=== PATIENT | female | born 1955 | race Caucasian/White ===

== ENCOUNTER → 2024-02-21 10:40 | Outpatient (REF) | payer OTHER, SELFPAY | LOC: DHCBC/DCA 10:40 | PROVIDERS: ATTENDING PHYSICIAN Nurse Practitioner; FAMILY PHYSICIAN Family Medicine | DX: R07.89 Other chest pain (principal); I25.810 Atherosclerosis of coronary artery bypass graft(s) without angina pectoris; R00.2 Palpitations; I48.4 Atypical atrial flutter | CPT/HCPCS: 78452; 93017; A9500; J2785 ==

== ENCOUNTER → 2024-04-03 13:44 | Outpatient (REF) | payer OTHER, SELFPAY | LOC: HWRCS 13:44 | PROVIDERS: ATTENDING PHYSICIAN Internal Medicine Cardiovascular Disease; FAMILY PHYSICIAN Family Medicine | DX: R53.83 Other fatigue (principal); R06.02 Shortness of breath; R00.2 Palpitations | CPT/HCPCS: 93306 ==

== ENCOUNTER → 2024-04-06 12:12 | Outpatient (REF) | payer OTHER, SELFPAY | LOC: RAD 12:12 | PROVIDERS: ATTENDING PHYSICIAN Internal Medicine Cardiovascular Disease; FAMILY PHYSICIAN Family Medicine | DX: R06.02 Shortness of breath (principal); Z87.891 Personal history of nicotine dependence | CPT/HCPCS: 71046 ==

== ENCOUNTER → 2024-04-13 11:47 | Day surgery (SDC) | payer OTHER, SELFPAY ==
[2024-04-13] VITALS (8 sets, daily range): BP systolic 109–139; BP diastolic 46–118
--- NOTE | 2024-04-13 14:50 | ITS.CL.CATH ---
Investment Banking Manager - Catheterization
Cardiac Catheterization
Procedure Report:
CARDIAC CATHETERIZATION REPORT
Date of Procedure: 04/13/2024
Referring: Steve Rios MD
Indication: Abnormal stress test with exertional dyspnea and known CAD
�
HEMODYNAMIC DATA
AO: 157/48
LV: 157/12
�
LEFT VENTRICULOGRAPHY: Severe inferobasal and mid inferior hypokinesis with EF 54%
�
CORONARY ANGIOGRAPHY
Dominance: Left
Left Main: Widely patent left main coronary artery stent extending into the circumflex with no restenosis.
LAD: 40% LAD stenosis spanning the takeoff of the large first diagonal branch. The LAD is occluded distal to the takeoff of the third septal x ray equipment mechanic. A widely patent QUINTEROS graft that supplies the distal LAD which has mild luminal disease. The
appearance of the LAD is similar to the prior studies from 2022 and 2013.
Circumflex: The circumflex is dominant. The left main coronary artery stent extending into the circumflex remains widely patent. A large ramus intermedius branch fills via the LARRY graft. There is smooth 40% stenosis just distal to this stented
segment. There is a long stented segment in the mid to distal circumflex which is widely patent. The distal circumflex has 50% stenosis past the takeoff of the bifurcating first left posterolateral branch and there are 60% and 70% lesions proximal
to the takeoff of the medium sized terminal left PDA. On review of the prior studies from 2022 the lesion severity appears similar
RCA: Nondominant vessel occluded at its origin. There is a proximal RV branch which collateralizes the more distal RV branches of the nondominant RCA
Bypass grafts:
1. The left internal mammary graft to the LAD remains widely patent with excellent runoff
2. The right internal mammary graft to the large ramus intermedius is widely patent with excellent runoff
�
Closure Device: None-angiography shows a small caliber right femoral artery and I felt the diameter of the vessel a bit small for safe placement of a closure device
Radiation (mGy): 107
DAP (cm2.Gy): 9.5
Fluoroscopy time: 5.3 minutes
�
CONCLUSIONS
1:�Systemic hypertension
2:�Severe inferobasal and mid inferior hypokinesis with EF 54%-the left ventriculogram is unchanged in appearance compared with the prior LVG from 12/2022
3. [place] CAD and graft anatomy as described above and essentially unchanged compared with the prior study from 2022 following circumflex stenting at that time
4. Recommend continued medical therapy for CAD
�
�
Copy to: Steve Rios MD, Frank Delgado MD
�
Cordell Paul MD, FORMERLY [facility], [facility]
== END | disposition home or self-care (01) ==
LOC: CATH 11:47
PROVIDERS: ATTENDING PHYSICIAN Internal Medicine Cardiovascular Disease; FAMILY PHYSICIAN Family Medicine; OTHER PHYSICIAN Internal Medicine Cardiovascular Disease
DX: I25.10 Atherosclerotic heart disease of native coronary artery without angina pectoris (principal); R06.09 Other forms of dyspnea; R94.39 Abnormal result of other cardiovascular function study; I10 Essential (primary) hypertension; Z95.5 Presence of coronary angioplasty implant and graft
CPT/HCPCS: 93459; C1894; Q9967

== ENCOUNTER → 2024-05-14 12:57 | Outpatient (REF) | payer OTHER, SELFPAY | LOC: HWRAD 12:57 | PROVIDERS: ATTENDING PHYSICIAN Internal Medicine Cardiovascular Disease; FAMILY PHYSICIAN Family Medicine | DX: I65.23 Occlusion and stenosis of bilateral carotid arteries (principal) | CPT/HCPCS: 93880 ==

== ENCOUNTER → 2024-05-28 12:38 | Outpatient (REF) | payer OTHER, SELFPAY | LOC: RAD 12:38 | PROVIDERS: ATTENDING PHYSICIAN Surgery Vascular Surgery; FAMILY PHYSICIAN Family Medicine | DX: I73.9 Peripheral vascular disease, unspecified (principal) | CPT/HCPCS: 75635; Q9967 ==

== ENCOUNTER → 2024-08-16 15:13 | Outpatient (REF) | payer OTHER, SELFPAY | LOC: RCS 15:13 | PROVIDERS: ATTENDING PHYSICIAN Internal Medicine Cardiovascular Disease; FAMILY PHYSICIAN Family Medicine | DX: I25.10 Atherosclerotic heart disease of native coronary artery without angina pectoris (principal); R00.1 Bradycardia, unspecified; I73.9 Peripheral vascular disease, unspecified; R00.2 Palpitations; I48.4 Atypical atrial flutter | CPT/HCPCS: 93225; 93226 ==

== ENCOUNTER 2024-08-30 08:21 | Day surgery (SDC) | payer OTHER, SELFPAY ==
[2024-08-30] VITALS (17 sets, daily range): BP systolic 94–179; BP diastolic 47–93; BMI 19.8
--- NOTE | 2024-08-30 12:49 | ITS.EPS ---
Hat Blocker - EPS Report
EPS
Procedure Report:
Electrophysiology study:
Ms. Jacobs is a very pleasant 69 yr old woman with h/o palpitations, and dyspnea of exertion, with h/o CAD s/p IA and CABG h/o IA and Severe inferobasal and mid inferior hypokinesis with EF 54% s/p left heart cath pn 04/13/24 that showed inferobasal
scar on LV gram and severe [place] CAD and patent grafts (the left internal mammary graft to the LAD remains widely patent with excellent runoff. The right internal mammary graft to the large ramus intermedius is widely patent with excellent runoff).
She had non-sustained VT and frequent PVCs. The Holter on 08/16/24 showed 2 of the runs were episodes of ventricular tachycardia, the longest ventricular run was 11 beats in length with a rate of 106 bpm and the fastest ventricular run had a rate of
176 bpm and was 9 beats in length. She also had frequent PVC in isolation and bigeminy patterns. With her non-sustained arrhythmia, she was advised for EP evaluation and arrhythmia induction for electrophysiology (EP) study and if ventricular
arrhythmia is inducible then possible ICD placement.
Date of the Procedure:
08/30/2024
Indications: Ventricular Tachycardia
Pre-Operative Diagnosis: History of ventricular tachycardia and dyspnea on exertion
Post-Operative Diagnosis: Ventricular tachycardia
Procedure Performed: EP study with arrhythmia induction
Performing physician:
Yue Velez MD
Anesthesia:
See anesthesia records
Detailed Description of the Procedure:
Written informed consent was obtained from the patient after a full explanation of the risks and benefits of the procedure including the risks of sedation and anesthesia.
The patient was brought to the electrophysiology laboratory in stable condition in fasting state. Continuous electrocardiographic and hemodynamic monitoring was initiated. The initial rhythm was normal sinus rhythm.
The procedure site was meticulously prepared with surgical scrub and allowed to dry with no pooling. Sterile draping was applied to cover the procedure site. The image intensifier was draped with sterile bag and positioned over the patient.
After infusion of local anesthetic, vascular access was obtained under ultrasound guidance and sheaths were placed over guide wire as detailed below.
Sheaths:
��������� 6Fr sheath in right femoral vein
��������� 6Fr sheath in right femoral vein
Catheters:
��������� 6Fr - Saritha Quad-cath at RVa and HIS
��������� 6Fr - Saritha Quad-cath at HRA
Baseline intervals (milliseconds):
PP / RR interval (baseline cycle length): 870
P wave duration: 132
UT interval: 180
QRS duration: 94
QT interval: 468
AH interval: 86
His duration: 12
HV interval: 54
Q onset to RVa: 0
Sinus Node Function:
The sinus node functions are within acceptable normal range.
Atrioventricular Ruchi Function:
Atrial stimulation with incremental pacing intervals was performed from the high right atrium (HRA) and right ventricular apex (RVa) and antegrade and retrograde atrioventricular (AV) block cycle lengths were determined. The antegrade AV Wenckebach
was noted at 320 msec.
Programmed atrial stimulation was performed with drive train of 600 msec followed by a single atrial extra-stimulus and the AV ruchi and the atrial ERPs were determined. The AV ruchi ERP was 600/230 msec and the atrial ERP was <600/230 msec.
There was normal decremental conduction noted through the AV node. The programmed stimuli showed no evidence of dual pathways or echo beats.
Ventricular stimulation showed concentric, midline and decremental retrograde conduction through the AV node and retrograde AV ruchi Wenckebach was 320 msec and the retrograde AV ruchi ERP was 600/230 msec with drive train of 600 msec.
The AV ruchi functions are deemed within normal range and no sign of dual pathway noted.
Ventricular Function:
Single ventricular extrastimuli were delivered following drive train of 600 msec, the ventricular ERP was determined <200 msec. The ventricular electrical functions are within acceptable range.
Arrhythmia Induction:
Programmed stimulation including single, double and triple extrastimuli were delivered from the RVa. There was easily inducible non-sustained ventricular tachycardia with single and double extrastimuli.
The VT was induced at 400/240/240/230 and it was fast and sustained. The tachycardia was sustained at cycle length of 240 msec.
The tachycardia terminated to sinus just when cardioversion was about to shock.
The EP study was positive for ventricular tachycardia induced with programmed stimulation.
Procedure End
Following the completion of the EP study, catheters were removed. The sheaths were removed and hemostasis achieved with manual compression.
Estimated Blood loss:
<5 cc
Specimens Removed:
None.
Implants / Devices:
None
Urine output:
None
Packs / Drains/ Tubes:
None
Instrument / Sponge Count Correct:
Yes
Complications of the Procedure:
None
Condition of Patient at Time of Transfer:
Hemodynamically stable with no neurological or vascular compromise.
Summary:
A positive electrophysiology study with induction of Ventricular tachycardia using MUSTT protocol.
ICD placement is recommended.
--- NOTE | 2024-08-30 14:27 | CM ---
Chart reviewed. Patient is independent of ADLS, lives in a 1 STH, 2 NICOLE, 0 DME. Plan is for the patient to return home. CM to follow
--- NOTE | 2024-08-30 19:14 | PTCARENOTE ---
Pt received post EPS done via right femoral vein. Figure of eight suture removed without problem, no sign of bleeding or hematoma. Pt OOB with assist of one, slightly unsteady and at risk to fall, pt calling for assistance, fall precautions in
place. Pt voiding without difficulty. Telemetry showed sinus rhythm while pt was on bedrest and then frequent PVC's noted with occasional atrial fib. Pt shown ICD and procedure and activity restrictions explained. Plan for ICD placement on 08/31.
[2024-08-30] MEDS: LOPRESSOR 50 MG PO (20:23)
[2024-08-30] MEDS: TYLENOL 650 MG PO (20:38)
--- NOTE | 2024-08-30 21:39 | PTCARENOTE ---
Patient received at change of shift resting in the bed. Right groin site with gauze and tegaderm C/D/I, bilateral pedal pulse palpable. Sinus rhythm with PACs and PVCs on telemetry. Oxygen saturation on room air 95-99%. Patient's only complaint is a
mild headache, PRN acetaminophen given, see MAR. Plan of care discussed with patient. Call martel within reach.
[2024-08-30] MEDS: MELATONIN 5 MG PO (23:07)
[2024-08-31] VITALS (10 sets, daily range): BP systolic 124–150; BP diastolic 44–132
[2024-08-31 04:31] LABS: Hematocrit 29.2 % (37.0-47.0); Hemoglobin 9.8 g/dL (12.0-16.0); Mean Corp Hgb Conc. 33.6 g/dL (33.0-37.0); Mean Corpuscular Hgb 30.2 pg (27.0-31.0); Mean Corpuscular Volume 90.1 fL (81.0-99.0); Mean Platelet Volume 9.2 fL (7.4-10.4); Platelet Count 254 10^3/uL (130-400); Red Blood Cell Count 3.24 10^6/uL (4.20-5.40); Red Cell Dist. Width 13.6 % (11.5-14.5)
[2024-08-31 04:59] LABS: Blood Urea Nitrogen 16 mg/dl (7-17); Calcium 9.5 mg/dl (8.4-10.2); Carbon Dioxide 32 mmol/L (22-30); Chloride 97 mmol/L (98-107); Estimated Creatinine Clearance 50 ml/min; Glucose 92 mg/dl (70-99); Magnesium 2.3 mg/dl (1.6-2.3); Potassium 3.7 mmol/L (3.5-5.1); Sodium 135 mmol/L (135-145); eGFR > 60.00
--- NOTE | 2024-08-31 07:29 | W.PN.CD ---
Today's Communication / Plan
-
-Plan for ICD placement today.
-With severe bradycardia and need for uptitration of beta-blockers, will also need atrial lead.
Impression / Plan
-
Ms. Jacobs is a very pleasant 69 yr old woman with h/o palpitations, and dyspnea of exertion, with h/o CAD s/p ME and CABG h/o ME and Severe inferobasal and mid inferior hypokinesis with EF 54% s/p left heart cath on 04/13/24 that showed inferobasal
scar on LV gram and severe [place] CAD and patent grafts (the left internal mammary graft to the LAD remains widely patent with excellent runoff. The right internal mammary graft to the large ramus intermedius is widely patent with excellent runoff).
She had non-sustained VT and frequent PVCs. The Holter on 08/16/24 showed 2 of the runs were episodes of ventricular tachycardia, the longest ventricular run was 11 beats in length with a rate of 106 bpm and the fastest ventricular run had a rate of
176 bpm and was 9 beats in length. She also had frequent PVC in isolation and bigeminy patterns s/p EPS on 08/30/24 that was positive for easily inducible sustained ventricular tachycardia leading to loss of consciousness on the table.
Primary Terminal Operations Supervisor: Dr. Rios
Ventricular arrhythmia
- Easily inducible VT - sustained
- VT was sustained leading to loss of consciousness on the table with hemodynamic compromise.
- Increase Metoprolol to 100 mg BID after ICD
- Hold Amlodipine / HCTZ to uptitrate Metoprolol
- Bradycardia overnight. Heart rate in 40s at lower BB dose
- Will need atrial pacing as well to allow for higher Toprol dose
CAD
- s/p CABG - On Plavix, Eliquis, Crestor, Amlodipine and Metoprolol.
- [facility] 04/13/2024 - patents grafts and [place] disease
- Inferior scar - basal to mid infero septal.
- Recovered LVEF - now 55%
- ECHO 04/03/24- LVEF 55-60%
PAD:
-Bilateral carotid artery disease
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
-Severe ostial right renal artery stenosis
-Patent right external iliac and distal left external iliac stents
-On Eliquis, Plavix and Crestor
-Followed by Dr. De Souza
HTN:
-On amlodipine, HCTZ and metoprolol
-Needs uptitration of metoprolol. Will discontinue hydrochlorothiazide
-Hold amlodipine and if adequate blood pressure can be resumed especially with the presence of coronary bypass graft
History of SVT/atrial fibrillation
-History of wendi atrial tachycardia status post ablation on 10/17/2022
-Had history of atrial flutter but was not seen during the ablation and not ablated.
-[id number] score is 4-age, gender, CAD/PAD, HTN
Physical Exam
Vital Signs/Labs
Vital Signs
Temp Pulse Resp BP Pulse Ox
98.4 F 47 14 124/49 98
08/31/24 03:42 08/31/24 06:00 08/31/24 03:42 08/31/24 03:45 08/31/24 03:42
08/30/24 08/31/24 09/01/24
06:59 06:59 06:59
Actual Weight 53.97 kg
08/31/24 03:55
08/31/24 03:55
Magnesium 2.3 mg/dl (1.6-2.3) 08/31/24 03:55
Physical Exam
Constitutional: No acute distress and Comfortable
EENT: Anicteric and Moist mucous membranes
Cardiovascular: Rhythm & rate is regular, Pedal edema is absent, JVD pressure is normal and Systolic murmur absent
Respiratory: Respiratory effort normal, Lungs clear to auscul. and Crackles Absent
GI: Soft, Non tender and Normal bowel sounds
Neuro/Psych: Alert, Oriented and AO x 3
Other: Cath Site
Data Reviewed
-
Date of Service: August 31, 2024
Medical Decision Making: Reviewed Test Results, Test Interpretation and Review of Case with other Provider
EKG: Tracing Personally Visualized and interpreted
Echo: Report Reviewed by me
Labs: Labs Reviewed by me
Old Records: Reviewed
--- NOTE | 2024-08-31 08:41 | W.ICD.CONTRA ---
Post ICD/LEGAL RECRUITER-D
-
History of UT?: Yes
LV Function
Left ventricular function study result?: Ejection Fraction >/= 40%
ACEI/ARB/ARNI
Patient already on ACEI/ARB/ARNI: No (recently stopped lisinopril 10mg/d- no documentation noted in [employer])
ACEI/ARB/ARNI Not Indicated: Left Ventricular EF >/= 40%
Beta-Tyrell
Patient already on Beta Tyrell: Yes
[2024-08-31] MEDS: CRESTOR 5 MG PO (09:30)
[2024-08-31] MEDS: PLAVIX 75 MG PO (09:30)
[2024-08-31] MEDS: NORVASC 2.5 MG PO (09:30)
[2024-08-31] MEDS: SYNTHROID 100 MCG PO (09:31)
[2024-08-31] MEDS: LOPRESSOR 50 MG PO ×2 (09:31→21:14)
--- NOTE | 2024-08-31 10:41 | CM ---
Chart reviewed. Patient is independent of ADLS, lives with her partner in a 1 STH, 2 NICOLE, 0 DME. Plan is for the patient to return home. CM to follow
[2024-08-31] MEDS: VANCOCIN 200 IV (12:20)
--- NOTE | 2024-08-31 12:24 | PTCARENOTE ---
pt is sb on the monitor, hr in the 50s, vss. pt offers no complaints at this time. pt kept npo for procedure. report called to lab. iv abx started. pt educated on plan of care and pt verbalized understanding. call martel within reach.
[2024-08-31] MEDS: STERILE WATER FOR INJECTION 10 ML IV (13:26)
[2024-08-31] MEDS: AZACTAM 2000 MG IV (13:45)
--- NOTE | 2024-08-31 14:58 | ITS.CL.ICD ---
Sandblaster Supervisor - ICD
Implantable Cardioverter Defibrillator
Procedure Report:
Dual Chamber Implantable Cardioverter Defibrillator Placement:
Ms. Jacobs is a very pleasant 69 yr old woman with h/o palpitations, and dyspnea of exertion, with h/o CAD s/p PA and CABG h/o PA and Severe inferobasal and mid inferior hypokinesis with EF 54% s/p left heart cath on 04/13/24 that showed inferobasal
scar on LV gram and severe [place] CAD and patent grafts (the left internal mammary graft to the LAD remains widely patent with excellent runoff. The right internal mammary graft to the large ramus intermedius is widely patent with excellent runoff).
She had non-sustained VT and frequent PVCs. The Holter on 08/16/24 showed 2 of the runs were episodes of ventricular tachycardia, the longest ventricular run was 11 beats in length with a rate of 106 bpm and the fastest ventricular run had a rate of
176 bpm and was 9 beats in length. She also had frequent PVC in isolation and bigeminy patterns s/p EPS on 08/30/24 that was positive for easily inducible sustained ventricular tachycardia leading to loss of consciousness on the table. She presented
with sinus bradycardia 30s to 40s bpm and is in need for atrial pacing lead.
Indications: Sick sinus syndrome with inducible sustained ventricular tachycardia.
Date of the Procedure:
08/31/2024
Pre-Operative Diagnosis: Sick sinus syndrome with inducible sustained ventricular tachycardia.
Post-Operative Diagnosis: Sick sinus syndrome with inducible sustained ventricular tachycardia.
Procedure Performed: DUAL CHAMBER IMPLANTABLE CARDIOVERTER DEFIBRILLATOR IMPLANTATION
Performing Physician:
Yue Velez MD
Anesthesia:
See anesthesia report
Detailed Description of the Procedure:
The patient was identified using hospital identification and informed consent obtained for the procedure. The risks were explained including, but not limited to: Bleeding, infection, arrhythmia, stroke, vascular/cardiac/lung puncture, surgery,
pacemaker dependency/device malfunction. All questions were answered.
The patient was brought to the electrophysiology laboratory in stable condition in fasting state. Continuous electrocardiographic and hemodynamic monitoring was initiated. The initial rhythm was sinus bradycardia.
The procedure site was meticulously prepared with surgical scrub and allowed to dry with no pooling. Sterile draping was applied to cover the procedure site. The image intensifier was draped with sterile bag and positioned over the patient.
The left infra-clavicular region was prepped and draped in the usual sterile fashion. Local anesthesia was administered subcutaneously using 1% lidocaine / Bupivacaine. The left cephalic vein cut-down was performed with an incision at the
delto-pectoral groove, and vascular sheaths were introduced for lead access. These were advanced into the right ventricle and the right atrium.
The right ventricular lead was secured in position with an active fixation technique at the apical septal location.
The RA lead was attached in the right atrial appendage with active fixation.
There was excellent sensing, pacing, and impedance from the leads, with no diaphragmatic stimulation at 10 V output.�Bovie cautery, antibiotics, and fluoroscopy were used.
The sheath was withdrawn, and the thresholds remained acceptable. The lead was secured in position at the venous entry site with 2-0 Ethibond. A pocket was fashioned contiguous to the incision. The electrode terminals were connected to the pulse
generator, which was placed into the pocket. The wound was irrigated thoroughly with antibiotic solution and closed in 3 layers using 2-0 VLoc sutures followed by 2 layers of 4-0 V-loc sutures. Steri-Strips and a bandage were applied externally.�
Procedure End:
The procedure was tolerated well. A bandage was applied to the incision area.
Estimated Blood loss:
5 cc
Fluoro time:
1.2min / 1.93 mGy
Specimens Removed:
No cultures and no specimens were obtained. No intraoperative pathology was identified.
Urine output:
None
Packs / Drains/ Tubes:
None
Instrument / Sponge Count Correct:
Yes
Complications of the Procedure:
None
Condition of Patient at Time of Transfer:
Hemodynamically stable with no neurological or vascular compromise.
Device information:�
Generator: [employer]; Model: [id number]; Serial # [id number]
Atrial Lead: Medtronic; Model: 5076-45; Serial # [id number]
Measured data in the right atrium was sensing of 1.9 mV, impedance of 693670 ohms and threshold of 0.75 V at 0.4ms�
RV Lead: Medtronic; Model: 6935M-55; Serial # [id number]
Measured data in the RV lead was sensing of 11 mV, impedance of 494 ohms and threshold of 0.5 V at 0.4ms�
HVB impedance: 91
PROGRAMMING PARAMETERS:�
Jeromy parameter settings were AAIR <=>DDDR 60-130 bpm. �
��������������� Mode switch: On
��������������� Paced AV delay: 130 ms
��������������� Sensed AV delay: 100 ms
��������������� Rate Adaptive A-V Interval: Off
Output parameters:
������������������������������� Amplitude (V)������������������� Pulse Width (ms)������������� Sensitivity (mV)
��������������� RA: ������� 3.5 ������������������������ ��������������� 0.4������������������������� ��������������� 0.3
��������������� RV:�������� 3.5������������������������� ��������������� 0.4������������������������� ��������������� 0.3
Tachy parameter settings:
��������������� SVT discrimination: On
��������������� AF/AFl: On
��������������� SVT limit: 260 msec
��������������� VT zone:
������������������������������� Slow VT: 150 - 182 bpm --> Monitor
������������������������������� Fast VT: 182-207 bpm --> ATP then Shock
������������������������������� VF: >207 bpm --> Shock x6 (ATP before and during)
�
Summary:
Successful implantation of MRI compatible dual chamber Medtronic implantable Cardioverter Defibrillator.�
Results/Recommendations:
-Please follow up CXR�
1. Please provide patient with adequate pain control�
Instructions to be given to patient:�
- Please follow up with [facility] at [address] [place] [address] ([phone]) to get your wound checked within 14 days of your discharge.
- Do not soak incision site until after it is evaluated at cardiology clinic. OK to showers followed by dab dry the area. No baths or swimming until then. Sponge baths are OK.�
- Allow 'steri strips' to fall off on their own�
- Do not lift left elbow above shoulder, particularly with sudden jerking movements, for 1 month�
- Do not lift anything weighing more than 5 pounds with the left arm for 1 month�
- If you notice any fevers, shortness of breath, lightheadedness, chest pain, or worsening swelling in the wound site, please contact the arrhythmia clinic, contact your subcontract administrator, or present to the hospital for evaluation.�
Yue Velez MD
Electrophysiology
--- NOTE | 2024-08-31 17:12 | PTCARENOTE ---
pt post icd, dressing cdi. pt is paced on the monitor, hr in the 60s, vss. pt offers no complaints at this time. pt educated on plan of care and pt verbalized understanding. call martel within reach.
[2024-08-31] MEDS: TYLENOL 650 MG PO (18:10)
--- NOTE | 2024-08-31 19:40 | PTCARENOTE ---
Assumed care of pt from prev nsg shift; Pt AAOx3 w/no c/o CP or SOB. Pt does c/o 3/10 L chest wall pain at her new ICD device site. Dressing C/D/I w/no signs or symptoms of bleeding or hematoma. Pt's VSS w/HR 60 & BP 149/59. Pt's is V-paced on
telemetry monitoring. Pt w/call martel within reach & plan of care ongoing.
[2024-09-01] MEDS: MELATONIN 5 MG PO (00:47)
[2024-09-01] MEDS: TYLENOL 650 MG PO ×4 (00:47→14:39)
[2024-09-01 00:49] VITALS: BP 99/79
[2024-09-01] MEDS: SYNTHROID 100 MCG PO (06:21)
[2024-09-01 06:24] VITALS: BP 152/62
[2024-09-01 06:53] LABS: Hematocrit 29.3 % (37.0-47.0); Hemoglobin 10.3 g/dL (12.0-16.0); Mean Corp Hgb Conc. 35.2 g/dL (33.0-37.0); Mean Corpuscular Hgb 30.7 pg (27.0-31.0); Mean Corpuscular Volume 87.2 fL (81.0-99.0); Mean Platelet Volume 9.1 fL (7.4-10.4); Platelet Count 264 10^3/uL (130-400); Red Blood Cell Count 3.36 10^6/uL (4.20-5.40); Red Cell Dist. Width 13.2 % (11.5-14.5); White Blood Cell Count 14.2 10^3/uL (4.8-10.8)
[2024-09-01 07:19] LABS: Blood Urea Nitrogen 20 mg/dl (7-17); Calcium 9.8 mg/dl (8.4-10.2); Carbon Dioxide 28 mmol/L (22-30); Chloride 97 mmol/L (98-107); Estimated Creatinine Clearance 56 ml/min; Glucose 138 mg/dl (70-99); Potassium 4.2 mmol/L (3.5-5.1); Sodium 133 mmol/L (135-145); eGFR > 60.00
--- NOTE | 2024-09-01 08:00 | PTCARENOTE ---
report received from previous RN at change of shift. Pt resting comfortably in bed. AAOX3. reports mild pain at left chest wall AICD site. pressure dressing intact. immobilizer in place. V paced on telemetry heart rate 60. pt on room air, lung
sounds clear. active bowel sounds. voiding in bathroom. see worklist for full nursing assessment and interventions.
[2024-09-01 08:15] VITALS: BP 128/52
[2024-09-01] MEDS: ELIQUIS 5 MG PO (08:19)
[2024-09-01] MEDS: CRESTOR 5 MG PO (08:20)
[2024-09-01] MEDS: NORVASC 2.5 MG PO (08:20)
[2024-09-01] MEDS: LOPRESSOR 50 MG PO (08:20)
[2024-09-01] MEDS: PLAVIX 75 MG PO (08:20)
--- NOTE | 2024-09-01 09:31 | W.PN.CD ---
Addendum entered and electronically signed by Dwaine Biggs MD 09/01/24 09:58:
69 yo female with CAD, palps, admitted with inducible VT, and now s/p ICD. Feels weak overall and occasional palps. Exam with RRR, no murmurs, no edema. Tele: Apaced, with runs of NSVT.
Discharge planning on higher dose metoprolol tartrate 100mg bid.
Original Note:
Today's Communication / Plan
-
d/c home
Impression / Plan
-
Ms. Jacobs is a very pleasant 69 yr old woman with h/o palpitations, and dyspnea of exertion, with h/o CAD s/p RI and CABG h/o RI and Severe inferobasal and mid inferior hypokinesis with EF 54% s/p left heart cath on 04/13/24 that showed inferobasal
scar on LV gram and severe guidiville CAD and patent grafts (the left internal mammary graft to the LAD remains widely patent with excellent runoff. The right internal mammary graft to the large ramus intermedius is widely patent with excellent runoff).
She had non-sustained VT and frequent PVCs. The Holter on 08/16/24 showed 2 of the runs were episodes of ventricular tachycardia, the longest ventricular run was 11 beats in length with a rate of 106 bpm and the fastest ventricular run had a rate of
176 bpm and was 9 beats in length. She also had frequent PVC in isolation and bigeminy patterns s/p EPS on 08/30/24 that was positive for easily inducible sustained ventricular tachycardia leading to loss of consciousness on the table.
Primary Cleaner Wall: Dr. Rios
Ventricular arrhythmia
- Easily inducible VT - sustained
- VT was sustained leading to loss of consciousness on the table with hemodynamic compromise.
- s/p ICD . L pectoral incision no hematoma. CXR stable . reviewed incision site care and L arm restrictions.
- Metoprolol titrated to 100mg BID per previous notes.
- Stopped Amlodipine / HCTZ to up titrate Metoprolol
-Tele with NSVT and SVT overnight. Asymptomatic.
- s/p CABG - On Plavix, Eliquis, Crestor, and Metoprolol.
- [facility] 04/13/2024 - patents grafts and guidiville disease
- Inferior scar - basal to mid infero septal.
- Recovered LVEF - now 55%
- ECHO 04/03/24- LVEF 55-60%
PAD:
-Bilateral carotid artery disease
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
-Severe ostial right renal artery stenosis
-Patent right external iliac and distal left external iliac stents
-On Eliquis, Plavix and Crestor
-Followed by Dr. De Souza
HTN:
-d/c amlodipine, HCTZ . metoprolol increased.
History of SVT/atrial fibrillation
-History of wendi atrial tachycardia status post ablation on 10/17/2022
-Had history of atrial flutter but was not seen during the ablation and not ablated.
-[id number] score is 4-age, gender, CAD/PAD, HTN
dispo:
-ambulate and d/c home
Physical Exam
Vital Signs/Labs
Vital Signs
Temp Pulse Resp BP Pulse Ox
97.6 F 62 18 128/52 96
09/01/24 08:13 09/01/24 09:00 09/01/24 08:13 09/01/24 08:20 09/01/24 08:13
08/31/24 09/01/24 09/02/24
06:59 06:59 06:59
Actual Weight 53.97 kg
09/01/24 06:45
09/01/24 06:45
Magnesium 2.3 mg/dl (1.6-2.3) 08/31/24 03:55
Physical Exam
Cardiovascular: Rhythm & rate is regular and Pedal edema is absent
Respiratory: Respiratory effort normal and Lungs clear to auscul.
Other: Cardiac Device Site (L pectoral incision intact no hematoma. )
Data Reviewed
-
Date of Service: September 01, 2024
EKG: Tracing Personally Visualized and interpreted (APVS, 61 bpm) and Other (Tele: APVS, NSVT, SVT. )
Labs: Labs Reviewed by me
[2024-09-01 09:39] VITALS: BP 139/54
[2024-09-01] MEDS: LOPRESSOR 25 MG PO (09:39)
--- NOTE | 2024-09-01 09:45 | W.DS.TRANS ---
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
-
Discharge Instructions:
Discharge Diagnosis/Procedures EP study with VT 08/30/2024
ICD implant 08/31/2024
Diet Low Cholesterol
Activity No strenuous activity
Additional Activity See attached instructions.
Driving Restrictions No driving for 1 week
Bathing Restrictions OK to Shower
Instructions:
Stand-Alone Forms: DC Instructions- Cath/EP Lab
DC Inst - Implanted Device
Changes to Home Medications: Yes
Discharge Medications:
DC Medications w/original date entered in [employer]
levothyroxine 100 mcg tablet (Synthroid) 100 mcg PO DAILY Thyroid 12/15/21
nitroglycerin 0.4 mg sublingual tablet 0.4 mg sublingual [id number] PRN CHEST PAIN 12/15/21
apixaban 5 mg tablet (Eliquis) 5 mg PO BID atrial fibrillation #60 tabs 12/16/21
rosuvastatin 5 mg tablet 5 mg PO DAILY High cholesterol 10/17/22
clopidogrel 75 mg tablet 75 mg PO DAILY #90 tabs 12/28/22
multivitamin 1 tab PO DAILY 12/28/22
B50 Complete 1 tab PO DAILY 08/30/24
coenzyme Q10 100 mg capsule (CoQ-10) 200 mg PO DAILY 08/30/24
metoprolol tartrate 100 mg tablet 100 mg PO BID #60 tabs 09/01/24
Home Medication Changes
Stop amlodipine
Stop HCTZ
Increase metoprolol to 100mg BID
Pending Results: No
[2024-09-01 12:05] VITALS: BP 146/66
[2024-09-01 13:01] VITALS: BP 153/48
== END 2024-09-01 16:33 | disposition home or self-care (01) ==
LOC: CATH 08:21
PROVIDERS: Nurse Practitioner; Nurse Practitioner Adult Health; ATTENDING PHYSICIAN Internal Medicine Cardiovascular Disease; FAMILY PHYSICIAN Family Medicine; OTHER PHYSICIAN Internal Medicine Cardiovascular Disease
DX: I47.20 Ventricular tachycardia, unspecified (principal); I49.5 Sick sinus syndrome; I25.10 Atherosclerotic heart disease of native coronary artery without angina pectoris; Z95.1 Presence of aortocoronary bypass graft; R55 Syncope and collapse; I25.2 Old myocardial infarction; E78.5 Hyperlipidemia, unspecified; I10 Essential (primary) hypertension; I25.5 Ischemic cardiomyopathy; I48.91 Unspecified atrial fibrillation; I65.23 Occlusion and stenosis of bilateral carotid arteries; I70.1 Atherosclerosis of renal artery; Z79.02 Long term (current) use of antithrombotics/antiplatelets; Z86.79 Personal history of other diseases of the circulatory system; Z88.5 Allergy status to narcotic agent; Z88.0 Allergy status to penicillin; Z87.891 Personal history of nicotine dependence; Z79.01 Long term (current) use of anticoagulants; I73.9 Peripheral vascular disease, unspecified; Z98.890 Other specified postprocedural states; I49.1 Atrial premature depolarization; I49.3 Ventricular premature depolarization; E03.9 Hypothyroidism, unspecified
CPT/HCPCS: 93620; 33249; C1730; C1894; 71046; 76937; 80048; 83735; 85027; 93005; C1721; C1777; C1892; C1898

== ENCOUNTER 2025-04-08 17:58 | Inpatient (IN) | payer OTHER, SELFPAY ==
[2025-04-08] VITALS (34 sets, daily range): BP systolic 72–193; BP diastolic 47–107; PULSE 2–90; BMI 22.0
--- NOTE | 2025-04-08 12:59 | ED.GENMED ---
History of Present Illness
<Tanya Cosme MD, Resident - Last Filed: 04/08/25 16:14>
General
Chief Complaint: Weakness
Source: patient
Time Seen by Provider: 04/08/25 12:39
History of Present Illness
History of Present Illness:
70-year-old female with past medical history of CAD, atypical atrial flutter on Eliquis, inducible polymorphic VT with recent ICD placement 09/04, hypothyroidism, peripheral artery disease presents to the ER with generalized weakness, nausea,
vomiting and diarrhea. Yesterday, she had takeout for breakfast which included eggs [place] with the eggs on the side. She has a severe egg allergy which causes nausea, vomiting and diarrhea. About 5 bouts of diarrhea yesterday, 3 episodes of
vomiting. Later in the day, she had significant diarrhea and later developed nausea and vomiting. She endorses chills, and some SOB, but no fever, chest pain, heart palpitations. She denies any runny nose, sore throat, cough. She has had no
recent sick contacts. Her partner had breakfast with her has no symptoms.
Past History
<Tanya Cosme MD, Resident - Last Filed: 04/08/25 16:14>
Past History
ED Past Medical History: CAD, HTN, Hypercholesterolemia, Other and Other (Peripheral vascular disease )
ED Past Surgical History: Cardiac (Cardiac stent 2000, CABG times 08/2004, carotid stent 05/2013), Gynecological (Times 08/01/1983, 1987), Tonsilectomy and Other (Thyroidectomy 1971, left external iliac stent, right common iliac stent)
Social History
Tobacco: Former smoker
Alcohol: None
Drug: None
Personal:
Living: with family
Family History
Family History: Other (Brother-throat cancer)
Review of Systems
<Tanya Cosme MD, Resident - Last Filed: 04/08/25 16:14>
Review of Systems
Constitutional: Reports chills
EENT: Reports no symptoms
Respiratory: Reports trouble breathing
Cardiac: Reports no symptoms
ABD/GI: Reports nausea, vomiting and diarrhea
: Reports no symptoms
Musculoskeletal: Reports no symptoms
Skin: Reports no symptoms
Neurological: Reports no symptoms
Psychiatric: Reports no symptoms
Phy Exam
<Tanya Cosme MD, Resident - Last Filed: 04/08/25 16:14>
Physical Exam
Physical Exam:
General: Uncomfortable
Head: Atraumatic
Cardiac: Regular S1, S2, no murmurs
Respiratory: Clear breath sounds bilaterally
Abdominal: Tender to palpation in the mid epigastric region, right upper quadrant, left lower quadrant, nondistended, normal bowel sounds in all 4 quadrants.
Extremities: No peripheral edema
Neurological: Nonfocal, awake alert and oriented
Psych: Mood stable
Course
<Tanya Cosme MD, Resident - Last Filed: 04/08/25 16:14>
Orders/Labs/Results
Orders:
Orders
04/08/25 12:26
EKG [Electrocardiogram (*1)] Urgent
Reason for Study: Shortness of Breath
EKG- Treatment ONCE
04/08/25 13:22
0.9% Sodium Chloride 1000 ml [Nss] 1,000 ml IV BOLUS
Ondansetron Injectable [Zofran] 4 mg IV NOW STA
04/08/25 13:23
CBC/With Diff [Complete Blood Count/With Diff] Urgent
CMP [Comprehensive Metabolic Panel] Urgent
Lipase Urgent
Magnesium Urgent
Comment: ADD ON
NT-proBNP Urgent
Comment: ADD ON
Phosphorus Urgent
Comment: ADD ON
Pantoprazole [Protonix IV] 40 mg IV NOW STA
04/08/25 14:10
CT Abd/pelvis W Iv Cont Urgent
Comment:
Reason For Exam: RLQ pain
04/08/25 14:11
COVID-19 Antigen Urgent
Source: Nasal Swab
Influenza A+B Rapid Molecular Urgent
DEMARCUS Source: Nasal Swab
Specimen Description:
04/08/25 15:11
Ondansetron Injectable [Zofran] 4 mg IV NOW STA
04/08/25 15:44
Portable Chest Xray [CR Chest Portable - 1 View] Stat
Comment:
Reason For Exam: SOB, hypoxia
Reason Study Needs to be Portable: Patient Unstable
04/08/25 15:51
Dexamethasone Pf [Decadron] 10 mg .ROUTE .STK-MED ONE
Diphenhydramine [Benadryl] 50 mg .ROUTE .STK-MED ONE
Famotidine [Pepcid] 20 mg .ROUTE .STK-MED ONE
Famotidine [Pepcid] 20 mg .ROUTE .STK-MED ONE
Furosemide [Lasix] 20 mg .ROUTE .STK-MED ONE
Nitroglycerin 100 mg/250 ml [Nitroglycerin Premix] 100 mg in 250 ml .ROUTE .STK-MED
04/08/25 15:55
Diphenhydramine [Benadryl] 25 mg IV NOW STA
Famotidine [Pepcid] 20 mg IV NOW STA
Furosemide [Lasix] 20 mg IV ONCE ONE
04/08/25 16:26
Diphenhydramine [Benadryl] 25 mg IV NOW STA
Famotidine [Pepcid] 20 mg IV NOW STA
Furosemide [Lasix] 20 mg IV NOW STA
04/08/25 16:27
Dexamethasone Sod Phosphate [Decadron] 10 mg IV NOW STA
04/08/25 16:30
Nitroglycerin 100 mg/250 ml [Nitroglycerin Premix] 100 mg in 250 ml IV PER PROTOCOL
Initial dose in mcg/min, then titrate:: 25
Titrate to keep:: SBP < 160 mmHg
Titrate by mcg/min:: 5 mcg/min, may increase by 10 mcg/min if dose > 20 mcg/min
Frequency of titrations (minutes):: every 3-5 minutes
Maximum dose in mcg/min:: 200
Begin to taper infusion when:: Remained at goal for 2hrs
Taper by mcg/min:: 5 mcg/min
Frequency of taper (minutes) if patient maintains goal:: 30
Taper to off?: Yes
If infusion off & no longer maintaining goal:: Contact Provider
04/08/25 17:22
Lactate Level [Lactic Acid] Urgent
04/08/25 17:27
Arterial Blood Gas Urgent
%Oxygen/Room Air: 86
04/08/25 17:36
Admit/Transfer Patient As Directed
Co-Sign Provider:
Level of Care: Inpatient admission
Assign to:: ICU
Physician / Group: Giorgi Snyder
Diagnosis: acute respiratory distress, allergic reaction, CHF
Reason for Hospitalization: acute respiratory distress, allergic reaction, CHF
Expected length of stay greater than two midnights?: Yes
ELOS- Estimated Length of Stay in days: 3
I certify the patient meets the requirements for IP care: Yes
PRN Pain Medication Management As Directed
May give lesser potent ordered pain med per pt: Yes
preference::
Protocol:: Medication orders for pain may be administered in a
manner that supports deferring to patient preference
when the pt is:
- Requesting an ordered lesser potent pain medication.
Least to most potent pain medications are defined
as: acetaminophen < NSAID < tramadol < opioids
(morphine, oxycodone, hydromorphone).
- Requesting a lesser dose of the same medication IF
ORDERED.
- Requesting a less intrusive route of administration
if both routes are prescribed by the provider (PO <
IV).
04/08/25 17:38
Code Status As Directed
Resuscitation Status: Full Code
04/08/25 17:51
Vancomycin [Vancocin] 1,500 mg 0.9% Sodium Chloride 500 ml [Nss] 500 ml IV NOW
04/08/25 20:11
Acetaminophen [Tylenol] 650 mg PO Q4HPRN PRN
Apixaban [Eliquis] 5 mg PO BID
Aztreonam [Azactam] 2,000 mg IV Q8H
Metoprolol [Lopressor] 100 mg PO BID
VANCOMYCIN Pharmacy to Dose [VANCOCIN Pharmacy to Dose] 1 each Pharmacy To Prepare [Call Pharmacy To Prepare] 0 ml IV PER PROTOCOL
04/08/25 20:11
CARDIOLOGY CONSULT Routine
Consulting Provider: Manuel Hou
Was physician already notified: Yes
Bobbin Drier Consult Urgent
Consulting Provider: Marielena Espinosa
Was physician already notified: Yes
Activity As Directed
Activity Level: As Tolerated
Bedside Glucose Monitoring-ONCE As Directed
Comment: upon arrival to ICU
Intake/ Output As Directed
Frequency: Per unit guidelines
Notify MD As Directed
Notify physician if: While in ICU level of care:
glucose greater than or equal to 180 mg/dL once, contact provider to initiate Critical
Care Glycemic Protocol Target Range 140-180 mg/dL.
Patient Education As Directed
Type: CHF folder
Comment: give on admission. Document in Interdisciplinary Education record
Sleep Apnea Assessment by RN As Directed
Comment:
Physician Instructions:
Vital Signs As Directed
Frequency: Per unit guidelines
Weight As Directed
Frequency: Daily
Type of Scale: Standing Scale
Comment: Daily morning weight. If unable to stand, use balanced bed scale.
Weight As Directed
Frequency: Once
Type of Scale: Standing Scale
Comment: Upon Admission. If unable to stand, use balanced bed scale.
O2 Therapy [RESP] Routine
Titrate/Wean O2 to maintain O2 sat greater than (%): 93
Pulse Ox/cont/shift [RESP] Routine
Quantity: 1
Special Instructions: Daily pulse oximetry at rest. If greater than 92% at rest also obtain pulse oximetry
while ambulating as tolerated.
04/08/25 21:21
Protime/PTT Urgent
Comment: upon arrival to ICU (if not done in ED or in last 24 hours)
04/09/25 03:37
Basic Metabolic Panel IN AM
Complete Blood Count/No Diff IN AM
04/09/25 06:00
Levothyroxine [Synthroid] 100 mcg PO DAILY@0600
04/09/25 08:00
Clopidogrel Bisulfate [Plavix] 75 mg PO DAILY
Rosuvastatin Calcium [Crestor] 5 mg PO DAILY
Abnormal Lab Results
04/08/25 04/08/25
13:23 17:27
WBC 17.8 H 10^3/uL
(4.8-10.8)
MCH 33.8 H pg
(27.0-31.0)
Abs Immat Gran (auto) 0.1 H 10^3/uL
(0-0.05)
Absolute Neuts (auto) 15.6 H 10^3/uL
(1.4-6.5)
Absolute Monos (auto) 0.7 H 10^3/uL
(0.1-0.6)
Neutrophils % 87.6 H %
(42.2-75.2)
Lymphocytes % 8.1 L %
(20.5-51.1)
pH 7.48 H
(7.35-7.45)
pCO2 30 L mmHg
(32-35)
pO2 166 H mmHg
(83-108)
ABG O2 Sat (Measured) 99.6 H %
(94-98)
Sodium 131 L mmol/L
(135-145)
Chloride 96 L mmol/L
(98-107)
BUN 33 H mg/dl
(7-17)
Glucose 184 H mg/dl
(70-99)
AST 43 H U/L
(14-36)
04/08/25 13:23
04/08/25 13:23
Vital Signs
Initial and Last Documented VS:
Initial Vital Signs
Temp Pulse Resp BP Pulse Ox
97.6 F 67 18 166/88 97
04/08/25 12:23 04/08/25 12:23 04/08/25 12:23 04/08/25 12:23 04/08/25 12:23
Last Documented Vital Signs
Temp Pulse Resp BP Pulse Ox
98.3 F 89 24 143/80 92
04/10/25 11:18 04/10/25 10:00 04/10/25 10:00 04/10/25 10:00 04/10/25 08:30
<Jh Moore MD - Last Filed: 04/10/25 11:55>
Orders/Labs/Results
Orders:
Orders
04/08/25 12:26
EKG [Electrocardiogram (*1)] Urgent
Reason for Study: Shortness of Breath
EKG- Treatment ONCE
04/08/25 13:22
0.9% Sodium Chloride 1000 ml [Nss] 1,000 ml IV BOLUS
Ondansetron Injectable [Zofran] 4 mg IV NOW STA
04/08/25 13:23
CBC/With Diff [Complete Blood Count/With Diff] Urgent
CMP [Comprehensive Metabolic Panel] Urgent
Lipase Urgent
Magnesium Urgent
Comment: ADD ON
NT-proBNP Urgent
Comment: ADD ON
Phosphorus Urgent
Comment: ADD ON
Pantoprazole [Protonix IV] 40 mg IV NOW STA
04/08/25 14:10
CT Abd/pelvis W Iv Cont Urgent
Comment:
Reason For Exam: RLQ pain
04/08/25 14:11
COVID-19 Antigen Urgent
Source: Nasal Swab
Influenza A+B Rapid Molecular Urgent
DEMARCUS Source: Nasal Swab
Specimen Description:
04/08/25 15:11
Ondansetron Injectable [Zofran] 4 mg IV NOW STA
04/08/25 15:44
Portable Chest Xray [CR Chest Portable - 1 View] Stat
Comment:
Reason For Exam: SOB, hypoxia
Reason Study Needs to be Portable: Patient Unstable
04/08/25 15:51
Dexamethasone Pf [Decadron] 10 mg .ROUTE .STK-MED ONE
Diphenhydramine [Benadryl] 50 mg .ROUTE .STK-MED ONE
Famotidine [Pepcid] 20 mg .ROUTE .STK-MED ONE
Famotidine [Pepcid] 20 mg .ROUTE .STK-MED ONE
Furosemide [Lasix] 20 mg .ROUTE .STK-MED ONE
Nitroglycerin 100 mg/250 ml [Nitroglycerin Premix] 100 mg in 250 ml .ROUTE .STK-MED
04/08/25 15:55
Diphenhydramine [Benadryl] 25 mg IV NOW STA
Famotidine [Pepcid] 20 mg IV NOW STA
Furosemide [Lasix] 20 mg IV ONCE ONE
04/08/25 16:26
Diphenhydramine [Benadryl] 25 mg IV NOW STA
Famotidine [Pepcid] 20 mg IV NOW STA
Furosemide [Lasix] 20 mg IV NOW STA
04/08/25 16:27
Dexamethasone Sod Phosphate [Decadron] 10 mg IV NOW STA
04/08/25 16:30
Nitroglycerin 100 mg/250 ml [Nitroglycerin Premix] 100 mg in 250 ml IV PER PROTOCOL
Initial dose in mcg/min, then titrate:: 25
Titrate to keep:: SBP < 160 mmHg
Titrate by mcg/min:: 5 mcg/min, may increase by 10 mcg/min if dose > 20 mcg/min
Frequency of titrations (minutes):: every 3-5 minutes
Maximum dose in mcg/min:: 200
Begin to taper infusion when:: Remained at goal for 2hrs
Taper by mcg/min:: 5 mcg/min
Frequency of taper (minutes) if patient maintains goal:: 30
Taper to off?: Yes
If infusion off & no longer maintaining goal:: Contact Provider
04/08/25 17:22
Lactate Level [Lactic Acid] Urgent
04/08/25 17:27
Arterial Blood Gas Urgent
%Oxygen/Room Air: 86
04/08/25 17:36
Admit/Transfer Patient As Directed
Co-Sign Provider:
Level of Care: Inpatient admission
Assign to:: ICU
Physician / Group: Giorgi Snyder
Diagnosis: acute respiratory distress, allergic reaction, CHF
Reason for Hospitalization: acute respiratory distress, allergic reaction, CHF
Expected length of stay greater than two midnights?: Yes
ELOS- Estimated Length of Stay in days: 3
I certify the patient meets the requirements for IP care: Yes
PRN Pain Medication Management As Directed
May give lesser potent ordered pain med per pt: Yes
preference::
Protocol:: Medication orders for pain may be administered in a
manner that supports deferring to patient preference
when the pt is:
- Requesting an ordered lesser potent pain medication.
Least to most potent pain medications are defined
as: acetaminophen < NSAID < tramadol < opioids
(morphine, oxycodone, hydromorphone).
- Requesting a lesser dose of the same medication IF
ORDERED.
- Requesting a less intrusive route of administration
if both routes are prescribed by the provider (PO <
IV).
04/08/25 17:38
Code Status As Directed
Resuscitation Status: Full Code
04/08/25 17:51
Vancomycin [Vancocin] 1,500 mg 0.9% Sodium Chloride 500 ml [Nss] 500 ml IV NOW
04/08/25 20:11
Acetaminophen [Tylenol] 650 mg PO Q4HPRN PRN
Apixaban [Eliquis] 5 mg PO BID
Aztreonam [Azactam] 2,000 mg IV Q8H
Metoprolol [Lopressor] 100 mg PO BID
VANCOMYCIN Pharmacy to Dose [VANCOCIN Pharmacy to Dose] 1 each Pharmacy To Prepare [Call Pharmacy To Prepare] 0 ml IV PER PROTOCOL
04/08/25 20:11
CARDIOLOGY CONSULT Routine
Consulting Provider: Manuel Hou
Was physician already notified: Yes
Bobbin Drier Consult Urgent
Consulting Provider: Marielena Espinosa
Was physician already notified: Yes
Activity As Directed
Activity Level: As Tolerated
Bedside Glucose Monitoring-ONCE As Directed
Comment: upon arrival to ICU
Intake/ Output As Directed
Frequency: Per unit guidelines
Notify MD As Directed
Notify physician if: While in ICU level of care:
glucose greater than or equal to 180 mg/dL once, contact provider to initiate Critical
Care Glycemic Protocol Target Range 140-180 mg/dL.
Patient Education As Directed
Type: CHF folder
Comment: give on admission. Document in Interdisciplinary Education record
Sleep Apnea Assessment by RN As Directed
Comment:
Physician Instructions:
Vital Signs As Directed
Frequency: Per unit guidelines
Weight As Directed
Frequency: Daily
Type of Scale: Standing Scale
Comment: Daily morning weight. If unable to stand, use balanced bed scale.
Weight As Directed
Frequency: Once
Type of Scale: Standing Scale
Comment: Upon Admission. If unable to stand, use balanced bed scale.
O2 Therapy [RESP] Routine
Titrate/Wean O2 to maintain O2 sat greater than (%): 93
Pulse Ox/cont/shift [RESP] Routine
Quantity: 1
Special Instructions: Daily pulse oximetry at rest. If greater than 92% at rest also obtain pulse oximetry
while ambulating as tolerated.
04/08/25 21:21
Protime/PTT Urgent
Comment: upon arrival to ICU (if not done in ED or in last 24 hours)
04/09/25 03:37
Basic Metabolic Panel IN AM
Complete Blood Count/No Diff IN AM
04/09/25 06:00
Levothyroxine [Synthroid] 100 mcg PO DAILY@0600
04/09/25 08:00
Clopidogrel Bisulfate [Plavix] 75 mg PO DAILY
Rosuvastatin Calcium [Crestor] 5 mg PO DAILY
Abnormal Lab Results
04/08/25 04/08/25
13:23 17:27
WBC 17.8 H 10^3/uL
(4.8-10.8)
MCH 33.8 H pg
(27.0-31.0)
Abs Immat Gran (auto) 0.1 H 10^3/uL
(0-0.05)
Absolute Neuts (auto) 15.6 H 10^3/uL
(1.4-6.5)
Absolute Monos (auto) 0.7 H 10^3/uL
(0.1-0.6)
Neutrophils % 87.6 H %
(42.2-75.2)
Lymphocytes % 8.1 L %
(20.5-51.1)
pH 7.48 H
(7.35-7.45)
pCO2 30 L mmHg
(32-35)
pO2 166 H mmHg
(83-108)
ABG O2 Sat (Measured) 99.6 H %
(94-98)
Sodium 131 L mmol/L
(135-145)
Chloride 96 L mmol/L
(98-107)
BUN 33 H mg/dl
(7-17)
Glucose 184 H mg/dl
(70-99)
AST 43 H U/L
(14-36)
04/08/25 13:23
04/08/25 13:23
Vital Signs
Initial and Last Documented VS:
Initial Vital Signs
Temp Pulse Resp BP Pulse Ox
97.6 F 67 18 166/88 97
04/08/25 12:23 04/08/25 12:23 04/08/25 12:23 04/08/25 12:23 04/08/25 12:23
Last Documented Vital Signs
Temp Pulse Resp BP Pulse Ox
98.3 F 89 24 143/80 92
04/10/25 11:18 04/10/25 10:00 04/10/25 10:00 04/10/25 10:00 04/10/25 08:30
<Tanya Cosme MD, Resident - Last Filed: 04/08/25 16:14>
MDM/Problems Addressed
Differential Diagnosis Includes:
Gastritis, gastroenteritis, diverticulitis, flu, COVID, pancreatitis, norovirus, angioedema secondary to egg allergy.
MDM/Problems Addressed:
Tenderness in right lower quadrant concerning enough to warrant further imaging. Elevated WBC noted.
While in ED, patient became increasingly SOB and hypoxic requiring mid-flow and later transition to bipap. Portable x-ray revealed significant patchy airspace opacities on the right side. Chest exam got worse. Suspect angioedema secondary to egg
allergy vs lisinopril. She will need to be admittted for further evaluation.
Chronic conditions affecting care: CAD
Acute Exacerbation and/or Progression of Chronic Illness: Other (Egg allergy )
<Tanya Cosme MD, Resident - Last Filed: 04/08/25 16:14>
*Pulse Oximetry
SaO2: 97
Oxygen Mode of Delivery: Room air
Patient hypoxic: yes
Comment: Later developed hypoxia
*Critical Care Note
Total Time (30-74mins, 75-104mins- exclusive of procedures): Not Applicable
Data Reviewed
Review of Other/Old Records Reveals: Labs (Previously anemic on 09/01/2024 with hemoglobin 10.3 now improved to 14.4) and Radiology Studies (Peripheral vascular disease with left external iliac stent and right common iliac stent patent noted on
abdomen pelvic CT 05/28/2024, prior echo on 04/03/2024 revealed EF 55 to 60%)
Source: patient
ED Attending Note
<Tanya Cosme MD, Resident - Last Filed: 04/08/25 16:14>
-
Portions of this chart may have been created with voice recognition software.� Occasional wrong word or��sound alike� substitutions may have occurred due to the inherent limitations of voice recognition software.
<Jh Moore MD - Last Filed: 04/10/25 11:55>
ED Attending Note
Patient seen and examined by attending physician: Yes
ED Attending Note:
Patient presents to ED secondary to 2-day history of chills, along with multiple episodes of nausea, vomiting, or diarrhea, shortly after having expanded for breakfast yesterday morning. Denies fever. Denies coughing. Denies chest pain. Denies
back pain. Denies recent travel or surgery. Denies lower leg pain or swelling. Denies sick contact. No recent change in medications or diet. Patient also also reports shortness of breath with weakness.
Physical Exam
General: mild distress, acutely ill. afebrile
Head: nc/at. eomi
Neck: supple. normal range of motion
Heart: s1/s2 regular rate and rhythm
Lungs: mild respiratory distress. diminished breath sounds bilaterally
Abdomen: normal bowel sounds. no distention. mild RLQ tenderness to palpation
Neuro: alert and oriented x 3. no focal neurological deficits
Skin: no rash
Psychiatric: well kept. interactive and cooperative
Extremities: no edema. no calf tenderness.
Patient with progressive worsening shortness of breath with hypoxia despite supplemental oxygen via nasal cannula. In light of patient's presenting symptoms, concerning for potential allergic reaction versus angioedema, patient will be placed on
BiPAP and medication provided, i.e. Benadryl/Decadron/Pepcid. Patient will be admitted for further evaluation and treatment.
Discharge Plan
Departure
Patient Disposition: Admit
Date of Disposition: 04/08/25
Time of Disposition: 16:27
Admit to: ICU
Presentation/result/management discussed w/ accepting MD/DO: Hospitalist
Discharge Problem:
Pulmonary edema, Acute respiratory distress
Interventions
Interventions:
*General Assessment Last Done: 04/08/25 12:23
*Neglect/Abuse Screening Last Done: 04/08/25 12:23
*ED- Fall Risk Assessment Last Done: 04/08/25 13:22
*ED COVID-19 Vaccine History Last Done: 04/08/25 12:23
*ED Influenza Vaccine History Last Done: 04/08/25 12:23
*Nursing Disposition Last Done: 04/08/25 20:33
ED- Cardiac Assessment Last Done: 04/08/25 12:27
ED- Neurological Assessment Last Done: 04/08/25 12:27
ED- Pulmonary Assessment Last Done: 04/08/25 15:16
Discharge Date and Time
Discharge Date/Time: 04/08/25 20:24
[2025-04-08] MEDS: NSS 1000 IV (13:29)
[2025-04-08] MEDS: PROTONIX IV 40 MG IV (13:30)
[2025-04-08] MEDS: ZOFRAN 4 MG IV ×2 (13:30→15:14)
[2025-04-08 13:45] LABS: Hematocrit 41.2 % (37.0-47.0); Hemoglobin 14.4 g/dL (12.0-16.0); Mean Corp Hgb Conc. 35.0 g/dL (33.0-37.0); Mean Corpuscular Volume 96.7 fL (81.0-99.0); Nucleated Red Blood Cells % 0 %; Platelet Count 331 10^3/uL (130-400); Red Cell Dist. Width 12.1 % (11.5-14.5)
[2025-04-08 14:06] LABS: ALT (SGPT) 13 U/L (0-35); AST (SGOT) 43 U/L (14-36); Albumin 4.9 g/dl (3.5-5.0); Alkaline Phosphatase 80 U/L (38-126); Blood Urea Nitrogen 33 mg/dl (7-17); Calcium 10.0 mg/dl (8.4-10.2); Carbon Dioxide 22 mmol/L (22-30); Chloride 96 mmol/L (98-107); Estimated Creatinine Clearance 46 ml/min; Glucose 184 mg/dl (70-99); Lipase 75 U/L (23-300); Magnesium 2.3 mg/dl (1.6-2.3); Potassium 4.8 mmol/L (3.5-5.1); Sodium 131 mmol/L (135-145); Total Protein 8.2 g/dl (6.3-8.2); eGFR > 60.00
[2025-04-08 14:52] LABS: COVID-19 Antigen Negative (Negative)
[2025-04-08] MEDS: BENADRYL 25 MG IV (15:55)
[2025-04-08] MEDS: DECADRON 10 MG IV (15:55)
[2025-04-08] MEDS: PEPCID 20 MG IV (15:55)
[2025-04-08] MEDS: LASIX 20 MG IV (15:55)
[2025-04-08] MEDS: NITROGLYCERIN PREMIX 250 IV (16:29)
--- NOTE | 2025-04-08 16:37 | HPS.HSE ---
Family Physician
-
Family Physician: Frank Delgado
Chief Complaint
-
nausea, vomiting, diarrhea and shortness of breath
History of Present Illness
Patient is a 70-year-old female with past medical history significant for hypertension, hypercholesterolemia, atrial flutter, paroxysmal ventricular tachycardia, hypothyroidism, coronary artery disease, peripheral vascular disease and peripheral
arterial disease who presented to [facility] ED for evaluation of nausea, vomiting, diarrhea and shortness of breath. 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 Patient notes severe egg allergy with causes nause,
vomiting and diarrhea. Patient reports multiple episdoes of nausea. vomiting and diarrhea. She reports indigestion and shortness of breath. Denies fever, chills, cough or chest pain.
Medical History
Past Medical History
Past Medical History: Reports Other
Additional Past Medical History:
hypertension
hypercholesterolemia
atrial flutter
paroxysmal ventricular tachycardia
hypothyroidism
coronary artery disease
peripheral vascular disease
peripheral arterial disease
Past Surgical History: Reports Other
Additional Past Surgical History:
CABG in [facility] 2002
Left main stenting 2013
2 c-sections
cataract both eyes
Cardiac Cath 05/2017
cardiac cath 12/28/2022
defib 2024
Social History
Tobacco: Former Smoker (quit approximately 8 years ago )
Alcohol: None
Personal:
Living: With Family
Employment: Retired
Family History
Family History: Not pertinent
Allergies / Home Medications
Allergies reflects when Allergies were last updated in [facility].
Home Medications with original date entered in [facility]
Allergy/Medication List:
Allergies
Allergy/AdvReac Type Severity Reaction Status Date / Time
codeine Allergy made her Verified 04/08/25 12:26
'hyper'
and more
awake
egg Allergy 'severe Verified 04/08/25 12:26
indigestion'
Penicillins Allergy Hives and Verified 04/08/25 12:26
swelling
Home Medications
levothyroxine 100 mcg tablet (Synthroid) 100 mcg PO DAILY Thyroid 12/15/21
apixaban 5 mg tablet (Eliquis) 5 mg PO BID atrial fibrillation #60 tabs 12/16/21
rosuvastatin 5 mg tablet 5 mg PO DAILY High cholesterol 10/17/22
vitamin B complex 1 tab PO DAILY Supplement ##0 08/30/24
acetaminophen 325 mg tablet (Tylenol) 650 mg PO DAILYPRN PRN mild pain 04/08/25
amlodipine 2.5 mg tablet (Norvasc) 2.5 mg PO DAILY Blood Pressure 04/08/25
clopidogrel 75 mg tablet 75 mg PO DAILY Blood Clot Prevention/Tx 04/08/25
metoprolol tartrate 100 mg tablet 100 mg PO BID Blood Pressure 04/08/25
therapeutic multivitamin 1 tab PO DAILY Supplement 04/08/25
Review of Systems
-
History Source: Patient
Constitutional: Denies Fever or Chills
EENT: Denies Sore Throat
Respiratory: Reports Trouble Breathing (shortness of breath ); Denies Cough
Cardiac: Denies Chest Pain, Diaphoresis, Palpitations or Syncope
Abdomen/GI: Reports Nausea, Vomiting and Diarrhea; Denies Abdominal Pain
: Denies Dysuria, Frequency or Urgency
Musculoskeletal: Denies Joint Pain
Skin: Denies Itching or Rash
Neurological: Denies Dizzy, Headache, Weakness or Numbness
Endocrine: Denies Polyuria or Polydipsia
Physical Exam
Vital Signs
Vital Signs
Temp Pulse Resp BP Pulse Ox
98.4 F 80 27 116/63 96
04/08/25 14:00 04/08/25 16:30 04/08/25 16:30 04/08/25 16:30 04/08/25 16:30
Physical Exam
General: Well Developed, Well Nourished, No Apparent Distress, Conversant and Appears Chronically Ill
HEENT: NormoCephalic, Moist mucous membranes, PERRLA, Nose Appears Normal and Ears Appear Normal
Respiratory: Clear and Non Labored Respirations
Cardiac: S1/S2 and Regular Rhythm; No Murmur or Peripheral Edema
GI: Non Distended, Normal Bowel Sounds and Tender (mildly tender )
Musculoskeletal: No Clubbing, No Cyanosis and No Edema
Skin: Warm and IV/Catheter Site
Neuro: Awake and AO x 3
Psych: Calm and Intact Judgment/Insight
Laboratory Results
-
04/08/25 13:23
04/08/25 13:23
Laboratory Results
Total Bilirubin 0.8 mg/dl (0.2-1.3) 04/08/25 13:23
AST 43 U/L (14-36) H 04/08/25 13:23
ALT 13 U/L (0-35) 04/08/25 13:23
Alkaline Phosphatase 80 U/L (38-126) 04/08/25 13:23
Lipase 75 U/L (23-300) 04/08/25 13:23
Data Reviewed
-
Diagnostic Radiology: Report Reviewed by me (CXR: Congestive heart failure suspected with mild to moderate pulmonary edema.)
CT Scan: Report Reviewed by me (ABD/Pel: Changes at the lung bases which could reflect congestive heart failure, bibasilar pneumonia, and/or atelectasis. Clinical correlation recommended. No acute inflammatory changes within the abdomen or pelvis.
The appendix is normal. Mild diverticulosis without acute diverticulitis. No evid)
Medical Tests (Nuc Med, Echo, EKG etc): Report Reviewed by me (EKG: Atrial-paced rhythm ST and T WAVE ABNORMALITY, CONSIDER LATERAL ISCHEMIA QTcB >= 480 msec)
Lab Data: Labs Reviewed by me (WBC 17.8, neut 87.6, Na+ 131)
Impression/Plan
-
IMPRESSION/PLAN:
#nausea, vomiting, diarrhea and shortness of breath 2/2 egg allergy vs. CHF vs. infectious process
#acute hypoxic respiratory failure
s/p- IV Dexamethasone, IV Benadryl, IV Famotidine, IV Lasix
WBC 17.8, neut 87.6, Na+ 131
CXR: Congestive heart failure suspected with mild to moderate pulmonary edema.
Abd/Pel CT: Changes at the lung bases which could reflect congestive heart failure, bibasilar pneumonia, and/or atelectasis. Clinical correlation recommended.
No acute inflammatory changes within the abdomen or pelvis.
The appendix is normal.
Mild diverticulosis without acute diverticulitis. No evidence of bowel obstruction. Much of the colon is underdistended, which limits assessment of bowel wall thickening.
No obstructive uropathy.
Fatty infiltration of liver.
EKG: Atrial-paced rhythm
ST and T WAVE ABNORMALITY, CONSIDER LATERAL ISCHEMIA
QTcB >= 480 msec
Influenza: negative
Covid: negative
Norovirus: pending
- Admit to ICU
- Consult trencher driver
- Consult Cardiology
- BiPap 05/17
- IV Lasix 20mg daily
- IV Aztreonam and Vanco empiric
#hypertension
- continue amlodipine
#hypercholesterolemia
- continue rosuvastatin
#atrial flutter
s/p ablation
- continue Eliquis and metoprolol
#hypothyroidism
- continue levothyroxine
#coronary artery disease
s/p CABG
- clopidogrel and rosuvastatin
#paroxysmal ventricular tachycardia
s/p AICD
#peripheral vascular disease
#peripheral arterial disease
Code status: full code
DVT prophylaxis: Eliquis
--- NOTE | 2025-04-08 16:37 | W.PN.UPDATE ---
Addendum entered and electronically signed by Giorgi Snyder MD 04/08/25 19:20:
BNP > 27 K
LA 1.8
ECHO for AM
CBC card consulted
IV Lasix 20 gm daily
Addendum entered and electronically signed by Giorgi Snyder MD 04/08/25 17:54:
ABG on BiPAP with 10L NC O2
7.48
pCO2 31
pO2 166
- over corrected ABG
- trail of BiPAP break and f/u POx
Original Note:
Update Note
Progress Note Update
HPI
70F former smoker:
PMHX: CAD, atypical atrial flutter on Eliquis, inducible polymorphic VT with recent ICD placement 09/04, hypothyroidism, PAD seen at ER:
- generalized weakness, nausea, vomiting and diarrhea.
- Yesterday, she had takeout for breakfast which included eggs [place] with the eggs on the side.
- She has a severe egg allergy which causes nausea, vomiting and diarrhea.
- About 5 bouts of diarrhea yesterday, 3 episodes of vomiting.
- Later in the day, she had significant diarrhea and later developed nausea and vomiting.
- She endorses chills, and some SOB, but no fever, chest pain, heart palpitations.
- She denies any runny nose, sore throat, cough.
- She has had no recent sick contacts.
- Her partner had breakfast with her has no symptoms.
PMHX as above
PSHX :
Cardiac stent 2000
CABG times 08/2004
Carotid stent 05/2013
Rt. external iliac stent
Rt. common iliac stent
Gynecological (Times 08/01/1983, 1987)
Tonsillectomy
Thyroidectomy 1971
Relevant VS:
04/08/25
12:23
Temp 97.6 F
Temp route: Oral
Pulse 67
Resp Rate 18
Blood pressure 166/88
SaO2 97
04/08/25
15:00 04/08/25
16:10 04/08/25
16:30
Blood pressure 193/107 80/69 116/63
04/08/25
15:30 04/08/25
16:15 04/08/25
16:30
SaO2 96 85 96
PE:
General: Uncomfortable
Head: Atraumatic
Cardiac: Regular S1, S2, no murmurs
Respiratory: Clear breath sounds bilaterally
Abdominal: Tender to palpation in the mid epigastric region, right upper quadrant, left lower quadrant, nondistended, normal bowel sounds in all 4 quadrants.
Extremities: No peripheral edema
Neurological: Nonfocal, awake alert and oriented
Psych: Mood stable
Relevant data�
09/01/24 04/08/25
06:45 13:23
Hgb 10.3 L 14.4
Plt Count 264 331
Neutrophils % 87.6 H
09/01/24 04/08/25
06:45 13:23
Sodium 133 L 131 L
Chloride 97 L 96 L
BUN 20 H 33 H
Creatinine 0.8 1.0
eGFR > 60.00 > 60.00
Pending urgent LA
Last hospitalist admission: 10/17/2022 - 10/20/2022
DISCHARGE DIAGNOSIS:
1. Tachyarrhythmia, status post ablation.
2. Coronary disease.
3. Peripheral artery disease.
4. Anemia.
5. Hypothyroidism.
6. Hyperlipidemia.
7. Low normal B 12 level.
Relevant data�
- stat pro BNP
- Pending LA
- stool Cx
CXR
Congestive heart failure suspected with mild to moderate pulmonary edema
EKG
Atrial-paced rhythm
ST and T WAVE ABNORMALITY, CONSIDER LATERAL ISCHEMIA
QTcB >= 480 msec
ABNORMAL ECG
WHEN COMPARED WITH ECG OF 01-Sep-2024 06:31,
NONSPECIFIC T WAVE ABNORMALITY NO LONGER EVIDENT IN INFERIOR LEADS
T WAVE INVERSION NOW EVIDENT IN LATERAL LEADS
Confirmed by MD MERVIN, ELENO Merrill ([id number]) on 04/08/2025 1:05:41 PM
04/03/24 TTE
- LVEF 55-60%. Basal to mid inferoseptal hypokinesis.
- Stage II diastolic dysfunction suggestive of abnormal relaxation and increased filling pressures.
-Normal right ventricular size and function.
-Mild to moderate mitral regurgitation.
-Mild to moderate, eccentric (septally directed) tricuspid regurgitation.
- Estimated pulmonary artery pressure of 25-30 mmHg.
-Mild to moderate pulmonic regurgitation.
Compared to previous echo on 11/05/2022, LVEF has improved (previously 45-50%).
- Slightly progressive mitral regurgitation tricuspid regurgitation, and pulmonic regurgitation are noted.
CT AP w IV contrast
- Changes at the lung bases which could reflect congestive heart failure, bibasilar pneumonia, and/or atelectasis.
- Clinical correlation recommended.
- No acute inflammatory changes within the abdomen or pelvis.
- The appendix is normal.
- Mild diverticulosis without acute diverticulitis.
- No evidence of bowel obstruction.
- Much of the colon is underdistended, which limits assessment of bowel wall thickening.
- No obstructive uropathy.
- Fatty infiltration of liver.
Last hospitalist admission: 10/17/2022 - 10/20/2022
DISCHARGE DIAGNOSIS:
1. Tachyarrhythmia, status post ablation.
2. Coronary disease.
3. Peripheral artery disease.
4. Anemia.
5. Hypothyroidism.
6. Hyperlipidemia.
7. Low normal B 12 level
ASSESSMENT & PLAN
Pending Rx reconciliation
Acute GE like symptoms - Egg allergy or other infective patholgy
Unremarkable CT AP for acute abdominal patholgy
- IVF
- stool Cx, Noro virus
- Empiric IV Zosyn
Acute Hypoxic RI on Bi PAP , 10L NC O2
DDX : acute HF, aspiration pneumonitis , ARDS , angioedema
CXR ad CT suggest CHF
s/p- IV Dexamethasone, IV Benadryl, IV Famotidine, IV Lasix ,
- NTG gtt is off
- check stat ABG
- c/w IV Lasix 20mg daily
- c/w BiPAP
- CBC card consult
- ICU consulted
HX tachyarrhythmias
S/P Ablation 10/20/22
- on BB
- on Eliquis
CAD HX
HX cardiac stent 2000
HX CABG 2004
- Aspirin, beta-blockers and statin
PAD-follows with Dr. De Souza
Continue aspirin and statin
History of carotid stent 2012
Anemia
Hypothyroidism-continue Synthroid
Hyperlipidemia-continue statin
Ex-smoker
DVT Px: Eliquis
Full code
ICU - Piano Technician consulted
Total Critical Care Time__55___ minutes.
I was immediately available to the patient and staff. I personally examined, reviewed labs, diagnostic images/reports, interpretations, treatment plans, discussed patient care with other providers and family or caregivers (if patient is unable to
make decisions), entered orders as appropriate and documented the medical record.
[2025-04-08 17:38] LABS: B.E. -0.2 mmol/L; HCO3 22.3 mmol/L (21-28); O2 Saturation % 99.6 % (94-98); PCO2 30 mmHg (32-35); PO2 166 mmHg (83-108)
[2025-04-08] MEDS: VANCOCIN 530 MG IV (18:27)
[2025-04-08 20:27] LABS: Glucose - Point of Care 110 mg/dl (70-99)
[2025-04-08] MEDS: STERILE WATER FOR INJECTION 10 ML IV (21:23)
[2025-04-08] MEDS: ELIQUIS 5 MG PO (21:23)
[2025-04-08] MEDS: LOPRESSOR 100 MG PO (21:23)
[2025-04-08] MEDS: ROCEPHIN 1000 MG IV (21:23)
[2025-04-08 21:26] LABS: Venous Blood Gas B.E. -1.3 mmol/L (-4 to +4); Venous Blood Gas O2 Sat % 66.8 %
[2025-04-08 21:37] LABS: APTT 29.0 Sec (23.4-35.0); INR 1.23; PT 15.8 Sec (11.4-14.6)
[2025-04-08] MEDS: MELATONIN 5 MG PO (21:48)
--- NOTE | 2025-04-08 22:49 | PTCARENOTE ---
Pt admit from ED ~2009. Pt HR a-paced/SR on telemetry. 4L NC POX 94%. Lung crackles auscultated bilaterally. AAOx4. Pt feels fatigued but 'so much better' than on arrival to ED. Pt denies any nausea or any need to have BM. Labs drawn and sent. Pt
oriented to floor, pt belongings w/ pt. Pt educated on plan of care, pt states understanding - no questions at this time. Call martel within reach.
[2025-04-09] VITALS (16 sets, daily range): BP systolic 89–135; BP diastolic 40–94; BMI 20.8
--- NOTE | 2025-04-09 01:46 | PTCARENOTE ---
No changes in assessment.
[2025-04-09 03:46] LABS: Venous Blood Gas B.E. -1.8 mmol/L (-4 to +4); Venous Blood Gas O2 Sat % 84.0 %
[2025-04-09 04:17] LABS: Hematocrit 36.7 % (37.0-47.0); Hemoglobin 12.4 g/dL (12.0-16.0); Mean Corp Hgb Conc. 33.8 g/dL (33.0-37.0); Mean Corpuscular Volume 98.1 fL (81.0-99.0); Platelet Count 244 10^3/uL (130-400); Red Cell Dist. Width 12.3 % (11.5-14.5)
[2025-04-09 04:30] LABS: Blood Urea Nitrogen 35 mg/dl (7-17); Calcium 8.7 mg/dl (8.4-10.2); Carbon Dioxide 23 mmol/L (22-30); Chloride 105 mmol/L (98-107); Estimated Creatinine Clearance 46 ml/min; Glucose 134 mg/dl (70-99); Magnesium 2.0 mg/dl (1.6-2.3); Potassium 3.7 mmol/L (3.5-5.1); Sodium 134 mmol/L (135-145); eGFR > 60.00
[2025-04-09] MEDS: SYNTHROID 100 MCG PO (06:11)
--- NOTE | 2025-04-09 06:14 | PTCARENOTE ---
O2 weaned as tolerated. On RA pt POX 90% and pt states shes felt slightly SOB. Currently 2L NC POX 95%.
--- NOTE | 2025-04-09 07:50 | CON.CAR ---
Addendum entered and electronically signed by Benitez Elias MD 04/09/25 13:19:
I saw and evaluated the patient, and I provided the substantive portion of the medical decision making.
I reviewed and agree with the note by HINA Gao and it accurately reflects our care.
I personally performed the medical decision making of the this encounter and my assessment and plan is below:
XRay image reviewed by me and is c/w heart failure and ICD leads intact, ekg A paced, no ST-T changes, labs: Hgb 12.4, pBNP >27,000 with Cr 1. Cath 04/2024: [place] severe CAD, patent grafts => med rx, LVEDP 12 mmHg.
Imp
Acute HF, etiology uncertain, check tropoin now and in AM
Ischemic CM with mild LV dysfunction, LVEF 45-50%
Mild valve disease
CAD with patent grafts
ICD for inducible VT
PAD
Plan:
Add meds for HFmidrangeEF
IV diuresis
update echo
Check troponin, EKG in AM
Consider outpatient stress test
Original Note:
Consultation
Consultation Request
Date/Time Consultation Requested: 04/08/2025 20:00
Date/Time Consultation Performed: 04/09/2025 07:50
Requesting Provider: HINA Brenner
Performing Provider: HINA Gao for Dr. Elias
Reason for Consultation: Nausea, vomiting, shortness of breath
Medical History
-
Chief Complaint: Palpitations
History of Present Illness:
Marianne Jacobs is a 70-year-old female (known to Dr. Rios, her primary public administration professor), with CAD status post prior CABG, VT, recovered ischemic cardiomyopathy, carotid artery disease status post left internal carotid stenting, PAD with prior PCI
followed by Dr. De Souza, hypothyroidism and atrial flutter on Eliquis who presented with nausea, vomiting, diarrhea, and shortness of breath. Her nausea, vomiting, and diarrhea has been attributed to eggs [place]. She has a severe egg allergy and
normally orders eggs [place] without the eggs and does not have any GI issues. Cardiology was consulted for shortness of breath. She had acute hypoxemic respiratory failure in the setting of acute HFpEF. She had pulmonary edema on her chest x-ray
and elevated proBNP in the setting of hypoxia. She has not had further nausea, vomiting, diarrhea overnight. Her hypoxia has improved status post furosemide 20 mg IV x 1. She is not having any chest pain or shortness of breath
Past Medical History
Past Medical History: Arrhythmias (Atrial flutter, Ventricular tachycardia, SVT), CAD (CABG), CHF (Recovered ischemic cardiomyopathy), HTN, Hypercholesterolemia, Hypothyroidism, [place] and Other (PAD, carotid artery disease status post left internal
carotid stenting)
Past Surgical History: Cardiac (CABG in 2002, left carotid stent prior lower extremity stenting for PAD) and Gynecological
Social History
Tobacco: Former Smoker
Personal:
Employment: Retired
Family History
Family History: Early CAD (Father with CAD in his 50s, mother with carotid disease in her 60s)
Allergies / Home Medications
Allergy/AdvReac Type Severity Reaction Status Date / Time
codeine Allergy made her Verified 04/08/25 12:26
'hyper'
and more
awake
egg Allergy 'severe Verified 04/08/25 12:26
indigestion'
Penicillins Allergy Hives and Verified 04/08/25 12:26
swelling
�Medication �Instructions �Recorded �Confirmed �Type
levothyroxine 100 mcg tablet 100 mcg PO DAILY Thyroid 12/15/21 04/08/25 History
(Synthroid)
apixaban 5 mg tablet (Eliquis) 5 mg PO BID atrial fibrillation 12/16/21 04/08/25 Rx
#60 tabs
rosuvastatin 5 mg tablet 5 mg PO DAILY High cholesterol 10/17/22 04/08/25 History
vitamin B complex 1 tab PO DAILY Supplement ##0 08/30/24 04/08/25 History
acetaminophen 325 mg tablet 650 mg PO DAILYPRN PRN mild pain 04/08/25 04/08/25 History
(Tylenol)
amlodipine 2.5 mg tablet (Norvasc) 2.5 mg PO DAILY Blood Pressure 04/08/25 04/08/25 History
clopidogrel 75 mg tablet 75 mg PO DAILY Blood Clot 04/08/25 04/08/25 History
Prevention/Tx
metoprolol tartrate 100 mg tablet 100 mg PO BID Blood Pressure 04/08/25 04/08/25 History
therapeutic multivitamin 1 tab PO DAILY Supplement 04/08/25 04/08/25 History
Review of Systems
-
History Source: Patient
All other systems: Negative unless noted
Constitutional: Fatigue
EENT: No Symptoms
Respiratory: No Symptoms
Cardiac: No Symptoms
Abdomen/GI: No Symptoms
: No Symptoms
Musculoskeletal: No Symptoms
Skin: No Symptoms
Neurological: No Symptoms
Endocrine: No Symptoms
Hematologic/Lymphatic: No Symptoms
Physical Exam
Vital Signs
Temp Pulse Resp BP Pulse Ox
97.9 F 60 26 135/55 90
04/09/25 05:39 04/09/25 06:00 04/09/25 06:00 04/09/25 06:00 04/09/25 06:00
Lab Results
04/09/25 03:37
04/09/25 03:37
Asg-X-Cdcurhzcsvl Pept Cancelled 04/08/25 16:56
Physical Exam
General: Well Developed, Well Nourished, No Apparent Distress and Comfortable
HEENT: Normocephalic, Anicteric and Moist Mucous Membranes
Respiratory: Clear and Non Labored Respirations
Cardiac: S1/S2 and Regular Rhythm
Breast: Deferred by me
GI: Soft, Non Tender, Non Distended and Normal Bowel Sounds
Rectal: Deferred by Provider
Genito-urinary: No Costovertebral Tender
Musculoskeletal: No Clubbing and No Cyanosis
Skin: Warm and Dry
Neuro: AO x 3
Hematologic/Lymphatic: No Lymphadenopathy
Psych: Calm
Impression / Plan
-
I/P: 70F with CAD status post prior CABG, VT, recovered ischemic cardiomyopathy, carotid artery disease status post left internal carotid stenting, PAD with prior PCI followed by Dr. De Souza, hypothyroidism and atrial flutter on Eliquis who presented
with
Primary public administration professor: Dr. Rios
Acute hypoxic respiratory failure - in the setting of acute heart failure, plan as below
HFpEF, recovered ICM - acute on chronic
- Elevated proBNP, shortness of breath, and pulmonary edema on CXR
- Improvement with intravenous diuresis (furosemide 20 mg), additional dose ordered, this requires intensive monitoring
- Update echocardiogram
- Heart failure education
- Case management to jones [id number]
- Transition metoprolol succinate to metoprolol to tartrate, add MRA
Nausea/vomiting/diarrhea - per primary
Atrial flutter, type unknown - prior ablation
- Stable in sinus rhythm
- Oral Anticoagulation: Apixaban 5 mg twice daily
- [id number]: Score at least 5 (Heart failure, HTN, Vascular disease, age 65-74, female gender)
VT status post ICD
- Continue beta vicki
CAD
- Prior CABG and PCI's, on clopidogrel and apixaban
- Stable without chest pain
- Continue current medical therapy
PAD
-Bilateral carotid artery disease
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
-Severe ostial right renal artery stenosis
-Right external iliac and distal left external iliac stents
-On Eliquis, Plavix and Crestor
-Followed by Dr. De Souza
Mitral regurgitation, mild to moderate
Tricuspid regurgitation, mild to moderate
Hypercholesterolemia, does not tolerate higher doses of statin, continue rosuvastatin 5 mg
Former smoker, continued cessation recommended
Data Reviewed
-
EKG: Report Reviewed by me (Atrial paced, lateral ST abnormality)
Radiology: Report Reviewed by me (CXR: Congestive heart failure suspected with mild to moderate pulmonary edema.)
Medical Tests (Nuc Med, Echo etc): Report Reviewed by me
Labs: Labs Reviewed by me
Old Records: Reviewed
[2025-04-09] MEDS: ELIQUIS 5 MG PO ×2 (07:57→21:04)
[2025-04-09] MEDS: CRESTOR 5 MG PO (07:57)
--- NOTE | 2025-04-09 07:57 | CON.INTV ---
Addendum entered and electronically signed by Marielena Espinosa MD 04/09/25 12:31:
Patient transferred out of ICU
Pulmonary follow-up instructions left in chart
We will sign off. Please call with questions
Original Note:
Consultation
Consultation Request
Date/Time Consultation Requested: 04/09
Date/Time Consultation Performed: 04/09
Reason for Consultation: Critical care
Medical History
-
History of Present Illness:
History obtained from the patient, reviewing the records and reviewing both inpatient and outpatient records. Patient is a pleasant 70-year-old female with history of coronary disease with bypass surgery in [place], history of ischemic
cardiomyopathy recovered, VT, ICD, history of carotid disease, left internal carotid stent, atrial flutter on anticoagulation who presents with multitude of symptoms including indigestion, nausea, diarrhea after ingesting what she thought was eggs
[place] without the eggs. She has a severe egg allergy which normally causes indigestion and eats at the same place every weekend but this time she had a reaction. She brought herself in to [facility] where upon arrival, afebrile, pulse
67, breathing 18, blood pressure 166/88, 97%. Chest x-ray revealed heart failure, she was hypoxic requiring mid flow and then later transition to BiPAP. This was progressive while in the ED. She was admitted to ICU for further management
04/09/2025
At baseline, she denies any oxygen requirements, shortness of breath. She denies any prior pulmonary history, sleep apnea
.
PMH: Hypertension, hyperlipidemia, coronary disease with history of bypass surgery in [place] 2002, ischemic cardiomyopathy recovered, hypothyroidism, atrial flutter on anticoagulation, history of VT with ICD, carotid disease status post left
internal carotid stent
Past Medical History
Past Medical History: None (See above)
Past Surgical History: None (See above)
Social History
Tobacco: Former Smoker ([id number], quit 2017)
Alcohol: Former (History of alcoholism, quit 2020)
Drug: None
Personal: Single
Living: With Roomate
Employment: Retired
Family History
Family History: Other (Father with coronary disease in the fifth decade. 2 children healthy. Family history negative for blood clots, lung cancer, lung disease)
Allergies / Home Medications
Allergies
Allergy/AdvReac Type Severity Reaction Status Date / Time
codeine Allergy made her Verified 04/08/25 12:26
'hyper'
and more
awake
egg Allergy 'severe Verified 04/08/25 12:26
indigestion'
Penicillins Allergy Hives and Verified 04/08/25 12:26
swelling
Home Medications
�Medication �Instructions �Recorded �Confirmed �Last Taken �Type
levothyroxine 100 mcg tablet 100 mcg PO DAILY Thyroid 12/15/21 04/08/25 04/08/25 History
(Synthroid)
apixaban 5 mg tablet (Eliquis) 5 mg PO BID atrial fibrillation 12/16/21 04/08/25 04/08/25 Rx
#60 tabs
rosuvastatin 5 mg tablet 5 mg PO DAILY High cholesterol 10/17/22 04/08/25 04/08/25 History
vitamin B complex 1 tab PO DAILY Supplement ##0 08/30/24 04/08/25 04/08/25 History
acetaminophen 325 mg tablet 650 mg PO DAILYPRN PRN mild pain 04/08/25 04/08/25 04/08/25 History
(Tylenol)
amlodipine 2.5 mg tablet (Norvasc) 2.5 mg PO DAILY Blood Pressure 04/08/25 04/08/25 04/08/25 History
clopidogrel 75 mg tablet 75 mg PO DAILY Blood Clot 04/08/25 04/08/25 04/08/25 History
Prevention/Tx
metoprolol tartrate 100 mg tablet 100 mg PO BID Blood Pressure 04/08/25 04/08/25 04/08/25 History
therapeutic multivitamin 1 tab PO DAILY Supplement 04/08/25 04/08/25 04/08/25 History
Review of Systems
-
All other systems: Negative unless noted
Vitals / Labs / Diagnostic Testing
Vital Signs
Temp Pulse Resp BP Pulse Ox
97.9 F 60 26 135/55 90
04/09/25 05:39 04/09/25 06:00 04/09/25 06:00 04/09/25 06:00 04/09/25 06:00
Lab Data
04/09/25 03:37
04/09/25 03:37
Laboratory Results
04/08/25 04/08/25
17:27 21:21
PT 15.8 H
INR 1.23
APTT 29.0
pH 7.48 H
pCO2 30 L
pO2 166 H
HCO3 22.3
O2 Delivery Level
Microbiology
04/08/25 14:11 Nasal Swab Influenza Types A & B (MURTAZA) - Final
Negative for Influenza A & B, NAAT
Negative results must be combined with clinical observations
and patient history.
Nucleic Acid Amplification test (NAAT)performed on the
[employer] platform.
Diagnostic Testing:
Physical Exam
-
HEENT: Normocephalic and Anicteric
Cardiovascular: S1/S2, Regular Rhythm, Murmur (n), Rub (n), Peripheral Edema (n) and Calf Tenderness (n)
Respiratory: Wheeze (n), Rales (Minimal at base), Rhonchi (n) and Non-Labored Respirations
GI: Soft, Non Distended and Non Tender
Neurology: Awake, Alert and No Motor Deficits
Skin: Good Color and Other (No clubbing, no rash)
General: Comfortable
Assessment
-
70-year-old female with history of coronary disease with bypass surgery 2002 in [place], history of VT with ICD, recovered ischemic cardiomyopathy, peripheral vascular disease with recent left carotid stent, presents with indigestion, shortness of
breath after possibly ingesting eggs. Admitted with acute hypoxic respiratory insufficiency requiring BiPAP, progressive, admitted to ICU 04/09/2025
Acute hypoxic respiratory insufficiency
Progressive in the ED, requiring BiPAP/10 L
Bilateral infiltrates, suspected acute heart failure
Hypotension
Apparently received nitro drip in the ED, discontinued
Egg allergy (indigestion, shortness of breath symptoms)
Ingested eggs [place] (without the egg), preadmission
Conditions present prior to admission
Coronary disease with bypass surgery 2002
History of MN
Peripheral vascular disease
Carotid disease status post left carotid stent
Lower extremity stent
Hypertension/hyperlipidemia
History of atrial flutter
On Eliquis
[id number] history of smoking quit 2017
Former alcoholic, quit 2020
Chronic insomnia
Plan/recommendations
At this time, patient critically ill but stabilized
Progressive hypoxia, progressively worse chest x-ray noted in the ED
Patient was started on nitroglycerin drip, followed by hypotension. Discontinued
Required BiPAP briefly, oxygen level has improved, presently 90% on room air weaned down from 10 L
EKG with paced rhythm
Moving forward
Suspect acute congestive heart failure, improved
Unclear etiology but patient states she gets indigestion every time she eats eggs, not sure whether this is related
Clinically improved with diuresis, BiPAP therapy
Echocardiogram pending
Cardiology following
Potentially will require adjustment of medications for heart failure
No indication for antibiotics at this time
Discontinue ceftriaxone
Patient with significant tobacco history
She does qualify for lung cancer screening, CT chest 2021 noted
Biapical scarring, emphysema
Would benefit from lung cancer screening, low-dose CT chest as outpatient
Information left in chart
Assess ambulatory saturation prior to discharge
Discussed possibility of sleep disordered breathing
Patient describes chronic insomnia since stopping drinking
Positional therapy
Reviewed with critical care nursing, respiratory care, pharmacy
Reviewed with primary service, cardiology
Reviewed with admitting team 04/08
TCCT 31 min
l
[2025-04-09] MEDS: LOPRESSOR 100 MG PO (07:58)
[2025-04-09] MEDS: PLAVIX 75 MG PO (07:58)
--- NOTE | 2025-04-09 08:54 | PTCARENOTE ---
recd pt handoff in room, VS stable. Awakened for assessment, tolerating room air. aware of plans for the day. Given and using IS, notes 'difficult' and getting volumes of 1000 ml. denies urge to void at this time, call martel in reach. questions
answered. Seen by Dr. Espinosa and cardiology TUTOR COORDINATOR.
[2025-04-09] MEDS: LASIX 20 MG IV (10:59)
--- NOTE | 2025-04-09 12:24 | PTCARENOTE ---
report called to 3W RN. taken to new room 336-01 via WC with all belongings. in good spirits. ambulated to bathroom a few times, gait slow but steady. Lasix given IV as ordered. Using IS.
--- NOTE | 2025-04-09 12:34 | PTCARENOTE ---
pt transferred to [facility] from ICU via w/c. denies complaints, denies sob, transferring with assist x1, vss, will continue to monitor.
--- NOTE | 2025-04-09 13:18 | CM ---
Initial assessment completed with patient who lives in a 1 story home plus basement, laundry in basement, with a male friend, 2 steps to enter. 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 No DME in the home, does have an ICD. No
in-home services. No HC-POA. No VA benefits. No psychiatric hospitalizations. PCP is Dr. Frank Delgado. Pharmacy is [facility] in [place]. Discharge POC: Anticipate home with no needs.
[2025-04-09 14:10] LABS: Troponin I 0.130 ng/ml
--- NOTE | 2025-04-09 14:14 | PTCARENOTE ---
patent's troponin level 0.130. Dr. Ty Hudson made aware, will continue to monitor.
--- NOTE | 2025-04-09 14:18 | CM ---
Consult for pricing for Farxiga 10mg daily, $15.00/month.
[2025-04-09] MEDS: MELATONIN 5 MG PO (21:05)
[2025-04-09] MEDS: TOPROL XL PO (22:59)
[2025-04-10] VITALS (42 sets, daily range): BP systolic 116–196; BP diastolic 46–117; BMI 20.4
[2025-04-10] MEDS: REGLAN 10 MG IV (00:32)
--- NOTE | 2025-04-10 00:44 | W.PN.UPDATE ---
Update Note
Progress Note Update
2100 BP 104/48 107/53 HR 78, will hold metoprolol PO now.
0015 RN reports patient c/o 8/10chest pain shortness of breath and nausea.
patient seen and evaluated. reports 'pressure' pain in her mid chest non radiating, short of breath and that she is nauseous. 190's/106 HR 72 96% 2l 20
Lungs minimal rales, HR RRR + BS 4 quadrant voiding without difficulty
labs now, metoprolol 2.5 mg IVx1, Protonix 40mg IV x1, Reglan 10mg IV, EKG noted.
BP 180's/90's HR 70's 96% 2l 20
continuos to be nauseous, and has mid chest pressure
will order Nitro SL, DuoNeb, chest Xray. Lab results noted.
Nitro SL x3 Patient states feeling little better 5/10
compensation/benefits specialist Oem Sales Manager made aware. Addressed the situation
185/97 HR 81 chest pain remains
Advised to give Lopressor 2.5mg IVx1 + Nitroglycerin drip
IVU FRAME TABLE OPERATOR made aware. Will transfer patient to IVU.
[2025-04-10] MEDS: NSS (PRESERVATIVE FREE) 10 ML IV ×3 (01:00→19:55)
[2025-04-10] MEDS: PROTONIX IV 40 MG IV ×3 (01:01→19:56)
[2025-04-10] MEDS: LOPRESSOR 2.5 MG IV ×2 (01:01→04:09)
[2025-04-10 01:27] LABS: Hematocrit 33.5 % (37.0-47.0); Hemoglobin 11.8 g/dL (12.0-16.0); Mean Corp Hgb Conc. 35.2 g/dL (33.0-37.0); Mean Corpuscular Volume 95.4 fL (81.0-99.0); Platelet Count 270 10^3/uL (130-400); Red Cell Dist. Width 12.2 % (11.5-14.5)
[2025-04-10] MEDS: NITROSTAT (SUBLINGUAL) 0.4 MG SL ×5 (01:39→23:43)
[2025-04-10 01:46] LABS: Troponin I 0.101 ng/ml
--- NOTE | 2025-04-10 01:50 | PTCARENOTE ---
Pt reported feeling nauseous and difficulty sleeping with history of insomnia. Sara Cardenas MEDICAID SPECIALIST made aware and PRNs requested. Pt rang call martel and reported now with chest pain, difficulty breathing and continued with nausea. EKG done and
patient placed on 2L O2. MEDICAID SPECIALIST at bedside to assess patient. Labs collected and medications ordered and administered (See Mar). Pt continued with elevated BPs and chest pain. Nitroglycerin sublingual administered x3.
[2025-04-10 01:55] LABS: Blood Urea Nitrogen 44 mg/dl (7-17); Calcium 9.6 mg/dl (8.4-10.2); Carbon Dioxide 25 mmol/L (22-30); Chloride 100 mmol/L (98-107); Estimated Creatinine Clearance 42 ml/min; Glucose 149 mg/dl (70-99); Magnesium 2.5 mg/dl (1.6-2.3); Potassium 3.6 mmol/L (3.5-5.1); Sodium 136 mmol/L (135-145); eGFR 53.72
--- NOTE | 2025-04-10 02:11 | PTCARENOTE ---
Duoneb and portable Chest xray ordered.
[2025-04-10] MEDS: DUONEB 3 ML INH (02:33)
[2025-04-10] MEDS: BENADRYL 6.25 MG IV ×2 (04:11→06:01)
[2025-04-10] MEDS: NITROGLYCERIN PREMIX 250 IV (04:49)
[2025-04-10 05:26] LABS: Glucose - Point of Care 217 mg/dl (70-99)
--- NOTE | 2025-04-10 05:36 | PTCARENOTE ---
Addendum entered by Nicolasa Garcia RN 04/10/25 06:12:
Patient o2 increased, patient currently 94% on ra. C/o continued nausea. TT Cass SANTAMARIA, new order noted for Benadryl 1x dose. Med administered per orders. Patient continues to c/o chest pain 07/23. Nitro gtt increased to 35mcg/min. Will continue
to monitor patient closely.
Original Note:
Received patient from , patient transferred to ICU as IVU patient to start Nitro gtt for chest pain. Upon arrival, patient c/o 3-09/20 chest pain and nausea. Nitro gtt started per order. Labs drawn, EKG obtained. Patient placed on 2l o2 nc to
maintain sats. 92% on ra upon arrival. Patient aao x3, able to make needs known. Call martel within reach, will continue to monitor patient closely.
[2025-04-10 05:44] LABS: Hematocrit 33.6 % (37.0-47.0); Hemoglobin 11.5 g/dL (12.0-16.0); Mean Corp Hgb Conc. 34.2 g/dL (33.0-37.0); Mean Corpuscular Volume 98.2 fL (81.0-99.0); Platelet Count 277 10^3/uL (130-400); Red Cell Dist. Width 12.1 % (11.5-14.5)
[2025-04-10] MEDS: SYNTHROID 100 MCG PO (06:01)
[2025-04-10 06:05] LABS: Blood Urea Nitrogen 40 mg/dl (7-17); Calcium 9.6 mg/dl (8.4-10.2); Carbon Dioxide 23 mmol/L (22-30); Chloride 98 mmol/L (98-107); Estimated Creatinine Clearance 45 ml/min; Glucose 193 mg/dl (70-99); Potassium 3.3 mmol/L (3.5-5.1); Sodium 132 mmol/L (135-145); eGFR > 60.00
[2025-04-10 06:19] LABS: Troponin I 0.111 ng/ml
[2025-04-10] MEDS: KCL 270 MEQ IV (06:45)
--- NOTE | 2025-04-10 07:00 | PTCARENOTE ---
Received patient in sleep, Arousable to voice, A&Ox4, on RA, NSR with prolonged QTc, BP elevated, on Nitroglycerin drip for chest pain, currently c/o epigastric location chest pain 4/10 and indigestion feeling, continent.
--- NOTE | 2025-04-10 08:27 | W.PN.HOSP.TC ---
Today's Communication/Plan
-
Delayed noted for service provided on Mar
see note
Assessment / Plan
Assessment / Plan
1. Acute hypoxic respiratory failure
- required BiPAP and midflow support in ER
- concern for HF exacerbation avs aspiration pneumonitis
- Patient got IV Lasix, and has been able to wean off oxygen
- Was on nitroglycerin drip which has been taken off as well
- Currently patient on room air
2. Acute on chronic diastolic heart failure
- Chest x-ray reviewed and showing changes of mild to moderate pulmonary edema
- Patient started on IV diuretics, have appropriate response
- Continue follow-up weight and creatinine
- Repeat echocardiogram has been ordered
- Cardiology help appreciated
3. Possible aspiration pneumonitis
- Patient reported GI symptoms question of aspiration pneumonitis as well
- Currently on empiric antibiotics, will be de-escalated based on response
4. History of ventricular tachycardia
History of ablation
- Patient have ICD in place and currently in paced rhythm
- Patient denies of having any history of tachyarrhythmia post ablation
5. Nausea and vomiting
- CT abdomen pelvis did not show any acute abnormality
- Patient have irregular GI and usually have egg [place] without eggs, question of possible food contamination
- Symptoms has resolved at this point
- Cancel further stool studies and monitor clinically
6. Coronary disease
History of CABG in 2004
-Maintained on aspirin/statin
PAD-follows with Dr. De Souza
History of carotid stent 2012
Chronic Anemia
Hypothyroidism-continue Synthroid
Hyperlipidemia-continue statin
Ex-smoker
DVT Px: Eliquis
Full code
Total time spent : 53 mins
Transfer to telemetry
Anticipated Discharge: > 48 hours
Subjective/Interval History
-
Date of Service: April 09, 2025
This is a delayed note entry for service provided on April 09, 2025
Patient subjective feeling better
denies of having any nausea/vomiting
no chest pain overnight
off of o2 at this point
Objective Data
-
Labs:
Laboratory Results
04/10/25 04/10/25
01:18 05:12
WBC 16.9 H 21.9 H
Hgb 11.8 L 11.5 L
Hct 33.5 L 33.6 L
Plt Count 270 277
Sodium 136 132 L
Potassium 3.6 3.3 L
Chloride 100 98
Carbon Dioxide 25 23
BUN 44 H 40 H
Creatinine 1.1 H 1.0
Glucose 149 H 193 H
Calcium 9.6 9.6
Vital Signs:
Vital Signs
Temp Pulse Resp BP Pulse Ox
98.2 F 75 16 154/100 94
04/10/25 07:24 04/10/25 04:33 04/10/25 04:33 04/10/25 04:33 04/10/25 06:15
I&O
04/09/25 04/10/25 04/11/25
06:59 06:59 06:59
Intake Total 240 / 240 600 / 600
Output Total 800 / 800
Balance -560 / -560 600 / 600
Review of Systems
-
Respiratory: Reports No Symptoms
Cardiac: Reports No Symptoms
Abdomen/GI: Reports No Symptoms
Physical Exam
-
General: Negative Appears in Distress
HEENT: Negative Oxygen
Respiratory: Clear to Auscultation
Cardiac: Regular Rhythm and S1/S2; Negative Murmur
GI: Soft, Nontender and Nondistended
Neuro: Awake, Alert, Oriented and No Motor Deficits
Psych: Calm
[2025-04-10] MEDS: FARXIGA 10 MG PO ×2 (09:36→09:37)
[2025-04-10] MEDS: TOPROL XL 100 MG PO ×2 (09:37→19:56)
[2025-04-10] MEDS: CRESTOR 5 MG PO (09:37)
[2025-04-10] MEDS: ALDACTONE 25 MG PO (09:37)
[2025-04-10] MEDS: ELIQUIS 5 MG PO ×2 (09:37→19:56)
[2025-04-10] MEDS: PLAVIX 75 MG PO (09:37)
[2025-04-10] MEDS: ZOFRAN 4 MG IV (11:32)
--- NOTE | 2025-04-10 12:11 | W.PN.CD ---
Today's Communication / Plan
-
Later add RAAS-I either MARY JO-I, ARB or ARNI
clopidogrel and apixaban => hope clopidogrel will be stopped, will review with her mixer lever operator. I sent him a message
Impression / Plan
-
I/P: 70F with CAD status post prior CABG, VT, recovered ischemic cardiomyopathy, carotid artery disease status post left internal carotid stenting, PAD with prior PCI followed by Dr. De Souza, hypothyroidism and atrial flutter on Eliquis who presented
with
Primary mixer lever operator: Dr. Rios
Acute hypoxic respiratory failure - in the setting of acute heart failure, plan as below
HFimpEF, acute on chronic
- LVEF this admit 45-50%
- Improved
- Lasix/Aldactone/Farxiga/HF BB
- BP will allow RAAS-I: but BUN/Cr ratio favoring waiting a bit to start
Nonischemic myocardial injury from heart failure, peak trop 0.130
Nausea/vomiting/diarrhea
Atrial flutter, type unknown - prior ablation
- Stable in sinus rhythm
- Oral Anticoagulation: Apixaban 5 mg twice daily
- [id number]: Score at least 5 (Heart failure, HTN, Vascular disease, age 65-74, female gender)
VT status post ICD
- Continue beta vicki
CAD
- Prior CABG and PCI's, on clopidogrel and apixaban => hope clopidogrel will be stopped, will review with her mixer lever operator
- Stable without chest pain
- Continue current medical therapy
PAD
-Bilateral carotid artery disease
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
-Severe ostial right renal artery stenosis
-Right external iliac and distal left external iliac stents
-On Eliquis, Plavix and Crestor
-Followed by Dr. De Souza
Mitral regurgitation, mild to moderate
Tricuspid regurgitation, mild to moderate
Hypercholesterolemia, does not tolerate higher doses of statin, continue rosuvastatin 5 mg
Former smoker, continued cessation recommended
Subjective:
C/o nausea, had elevated BP and some cP last night
Echo 04/09/2025:
1. Normal LV size with basal anterior septal, basal and mid inferior septal, and mid inferolateral wall hypokinesis. LVEF visually estimated 45 to 50%.
2. Normal right regular size and systolic function.
3. Mild mitral regurgitation.
4. Compared to echocardiogram report dated 04/03/2024 the LVEF is reported a bit lower. Previously the LVEF was estimated 55-60%. In October 2022 the LVEF was reported to be 45 to 50%. MR has improved from mild–moderate to mild.
Physical Exam
Vital Signs/Labs
Vital Signs
Temp Pulse Resp BP Pulse Ox
98.3 F 63 20 159/66 95
04/10/25 11:18 04/10/25 12:00 04/10/25 12:00 04/10/25 12:00 04/10/25 12:00
04/09/25 04/10/25 04/11/25
06:59 06:59 06:59
Actual Weight 56.6 kg 55.5 kg
04/10/25 05:12
PT 15.8 Sec (11.4-14.6) H 04/08/25 21:21
INR 1.23 04/08/25 21:21
APTT 29.0 Sec (23.4-35.0) 04/08/25 21:21
Magnesium 2.5 mg/dl (1.6-2.3) H 04/10/25 01:18
04/08/25 04/08/25
13:23 16:56
Tkm-E-Noijeobxkif Pept > 98578 Cancelled
LAB Results
04/09/25 04/10/25 04/10/25
13:35 01:00 05:12
Troponin I 0.130 H* 0.101 H* 0.111 H*
04/10/25
11:00
Troponin I Cancelled
Physical Exam
Constitutional: No acute distress
Cardiovascular: Rhythm & rate is regular
Respiratory: Respiratory effort normal
GI: Soft
Neuro/Psych: AO x 3
Data Reviewed
-
Date of Service: April 10, 2025
--- NOTE | 2025-04-10 12:11 | PTCARENOTE ---
Reassessed the patient, titrating down on Nitroglycerin Drip, no other changes from previous assessments.
[2025-04-10] MEDS: KCL 40 MEQ PO (12:40)
--- NOTE | 2025-04-10 12:48 | W.PN.HOSP.TC ---
Today's Communication/Plan
-
see note
Assessment / Plan
Assessment / Plan
1. Acute hypoxic respiratory failure - Improved
- required BiPAP and midflow support in ER
- concern for HF exacerbation avs aspiration pneumonitis
- Patient got IV Lasix, and has been able to wean off oxygen
- Currently patient on room air
2. Acute on chronic diastolic heart failure
- Chest x-ray reviewed and showing changes of mild to moderate pulmonary edema
- Continue follow-up weight and creatinine
- Echocardiogram showing some ventricular hypokinesis. Ejection fraction 45 to 50%
- Remains on IV diuretic therapy
- Cardiology help appreciated
3. Chest pain
Troponin elevation
- Located in lower sternum epigastric region. Crushing/dull and constant in nature. Not associated with any diaphoresis. Nauseous although nausea was present in ER symptom and did not start with chest pain per se.
- Troponin trending down, 0.13 > 0.10 > 0.11. EKG showing paced rhythm
- Currently on nitro drip.
- Await further cardiology input
- Suspecting patient may have component of gastritis/esophagitis mimicking chest pain. Starting on IV Protonix 40 mg twice daily. Also giving dose of Tums to see if it improves the symptoms.
4. Aspiration pneumonitis -ruled out
- Repeat chest x-ray yesterday showed almost complete resolution of infiltrate suggestive of initial finding being pulmonary edema rather than pneumonia
- Patient has been taken off of antibiotic, monitor. Will consider reinitiation if clinically warranted
- Patient increased white blood cell count likely from dexamethasone 10 mg given in the ER
5. History of ventricular tachycardia
History of ablation
- Patient have ICD in place and currently in paced rhythm
- Patient denies of having any history of tachyarrhythmia post ablation
5. Nausea and vomiting
- CT abdomen pelvis did not show any acute abnormality
- Patient have irregular GI and usually have egg [place] without eggs, question of possible food contamination
- Cancel further stool studies and monitor clinically
- Patient continues to feel nauseous overnight again. QTc on upper normal range. Was given Reglan in night, will try Zofran
- Encourage oral intake as tolerated
6. Coronary disease
History of CABG in 2004
-Maintained on aspirin/statin
PAD-follows with Dr. De Souza
History of carotid stent 2012
Chronic Anemia
Hypothyroidism-continue Synthroid
Hyperlipidemia-continue statin
Ex-smoker
DVT Px: Eliquis
Full code
Total time spent : 55 mins
Anticipated Discharge: 24 - 48 hours
Subjective/Interval History
-
Date of Service: April 10, 2025
Patient had episode of chest pain and required to be transferred to IVU
Patient was placed on nitro drip
Patient was also having nausea without vomiting and required to be given symptomatic medication
Patient continues to have lower sternal/epigastric chest pain which is constant in nature
Objective Data
-
Labs:
Laboratory Results
04/10/25 04/10/25 04/10/25
01:18 05:12 11:31
WBC 16.9 H 21.9 H
Hgb 11.8 L 11.5 L
Hct 33.5 L 33.6 L
Plt Count 270 277
Sodium 136 132 L Cancelled
Potassium 3.6 3.3 L Cancelled
Chloride 100 98 Cancelled
Carbon Dioxide 25 23 Cancelled
BUN 44 H 40 H Cancelled
Creatinine 1.1 H 1.0 Cancelled
Glucose 149 H 193 H Cancelled
Calcium 9.6 9.6 Cancelled
04/10/25 04/10/25
12:34 16:00
WBC
Hgb
Hct
Plt Count
Sodium Cancelled Pending
Potassium Cancelled Pending
Chloride Cancelled Pending
Carbon Dioxide Cancelled Pending
BUN Cancelled Pending
Creatinine Cancelled Pending
Glucose Cancelled Pending
Calcium Cancelled Pending
Vital Signs:
Vital Signs
Temp Pulse Resp BP Pulse Ox
98.3 F 63 20 159/66 95
04/10/25 11:18 04/10/25 12:00 04/10/25 12:00 04/10/25 12:00 04/10/25 12:00
I&O
04/09/25 04/10/25 04/11/25
06:59 06:59 06:59
Intake Total 240 / 240 600 / 672.8 322.0 / 322.0
Output Total 800 / 800 275 / 275
Balance -560 / -560 600 / 672.8 47.0 / 47.0
Review of Systems
-
Respiratory: Reports Trouble Breathing
Cardiac: Reports Chest Pain; Denies Diaphoresis or Palpitations
Abdomen/GI: Reports Nausea; Denies Abdominal Pain, Vomiting or Diarrhea
Physical Exam
-
General: Negative Appears in Distress
HEENT: Oxygen
Respiratory: Clear to Auscultation
Cardiac: Regular Rhythm and S1/S2; Negative Murmur
GI: Soft, Nontender and Nondistended
Neuro: Awake, Alert, Oriented and No Motor Deficits
Psych: Calm
[2025-04-10] MEDS: TUMS CHEWABLE TABLET 400 MG PO (14:36)
--- NOTE | 2025-04-10 14:40 | CM ---
Transferred to ICU in retirement plan counselor hours for CP and SOB, troponin levels elevated . For transfer to IVU this afternoon. Discharge POC: Originally anticipated home with no needs. Now TBD. Possibly ANNAMARIA RN.
--- NOTE | 2025-04-10 16:10 | PTCARENOTE ---
Reassessed the patient, titrated off Nitroglycerin drip per CARDS, no other changes from previous assessments.
[2025-04-10 16:37] LABS: Blood Urea Nitrogen 27 mg/dl (7-17); Calcium 9.4 mg/dl (8.4-10.2); Carbon Dioxide 28 mmol/L (22-30); Chloride 99 mmol/L (98-107); Estimated Creatinine Clearance 50 ml/min; Glucose 115 mg/dl (70-99); Potassium 4.8 mmol/L (3.5-5.1); Sodium 133 mmol/L (135-145); eGFR > 60.00
--- NOTE | 2025-04-10 16:40 | PTCARENOTE ---
Received from ICU, VSS, monitor showing SR/Apaced. C/O epigastric pain, had TUMS on prior unit with slight relief. Denies nausea at present. Lungs diminished in the bases, denies SOB. Oriented to room, call martel in reach.
--- NOTE | 2025-04-10 21:36 | PTCARENOTE ---
Rec'd pt at change of shift. Pt AAO*3, VSS, and Apaced/SR on tele monitor. Pt denies any pain or discomfort. CHF packet and education provided. Pt now resting with call martel in reach. Plan of care ongoing. See MAR and flowchart for full pt care
and assessment.
[2025-04-10 22:02] LABS: Glucose - Point of Care 91 mg/dl (70-99)
[2025-04-10] MEDS: MELATONIN 5 MG PO (22:36)
[2025-04-10] MEDS: TUMS CHEWABLE TABLET 200 MG PO (23:56)
[2025-04-11] VITALS (29 sets, daily range): BP systolic 93–190; BP diastolic 46–88; BMI 20.3
[2025-04-11] MEDS: NITROSTAT (SUBLINGUAL) 0.4 MG SL (00:01)
[2025-04-11] MEDS: LOPRESSOR 2.5 MG IV (00:25)
--- NOTE | 2025-04-11 02:30 | PTCARENOTE ---
23:33- Pt used call martel to request staff assistance and reported chest pain before ambulating. Pt ambulated to bathroom with PCT and PCT notified RN of chest pain/discomfort. Pt reports feeling of indigestion and burning upon assessment, rating
burning at 7. BP 135/73 at this time. HINA Cardenas notified.
23:37- Measured again 181/77. HINA Cardenas updated via [place] [facility].
23:36- Pt given SL nitro tablet x3 for chest pain as ordered. BP remains elevated in the 160's. Pt reports no relief with SL nitro. 2L o2 applied and pulse ox 99%
23:45- Bp remains elevated and CP remains at 6-7 on a 1-10 pain scale. EKG obtained, no EKG changes noted.
23:55- Rec'd order for calcium carbonate and given as ordered. Pt instructed to keep HOB elevated and remain NPO. Pt verbalized understanding.
00:10- Rec'd order for IV metoprolol due to ongoing htn and given as ordered. See MAR and vital sign flowchart. Pt voided 50 ML of clear yellow urine at this time.
01:00- Pt used call martel to request assistance ambulating to BR. Staff assisted pt into BR and obtained clean urine sample. PT voided 50mL again. . Pt reports indigestion and burning sensation at 5 out of 10 now on pain scale. HINA Cardenas
notified and aware. No new orders at this time. Pt resting with call martel in reach. Plan of care ongoing.
--- NOTE | 2025-04-11 03:32 | W.PN.UPDATE ---
Update Note
Progress Note Update
patient c/o indigestion mid chest discomfort, SBP elevated 180's. Nitro SL x3, Tums given.
BP remains high, IV metoprolol 2.5 mg given.
Also complaining of frequent urination Bladder scan 50 ML, will obtain UA
resting in bed at present. monitor.
[2025-04-11 03:40] LABS: Hematocrit 33.7 % (37.0-47.0); Hemoglobin 11.7 g/dL (12.0-16.0); Mean Corp Hgb Conc. 34.7 g/dL (33.0-37.0); Mean Corpuscular Volume 96.0 fL (81.0-99.0); Platelet Count 287 10^3/uL (130-400); Red Cell Dist. Width 12.0 % (11.5-14.5)
[2025-04-11 04:07] LABS: Urine Character Clear (Clear)
[2025-04-11 04:07] LABS: Blood Urea Nitrogen 22 mg/dl (7-17); Calcium 10.2 mg/dl (8.4-10.2); Carbon Dioxide 23 mmol/L (22-30); Chloride 99 mmol/L (98-107); Estimated Creatinine Clearance 56 ml/min; Glucose 151 mg/dl (70-99); Potassium 4.5 mmol/L (3.5-5.1); Sodium 132 mmol/L (135-145); eGFR > 60.00
[2025-04-11 04:26] LABS: Urine Red Blood Cell 0-2 /HPF (0-2); Urine Squamous Cell 0-2 /LPF (Few); Urine White Cell 0-2 /HPF (0-5)
[2025-04-11] MEDS: SYNTHROID 100 MCG PO (06:03)
[2025-04-11] MEDS: LASIX 20 MG PO (06:03)
[2025-04-11] MEDS: CRESTOR 5 MG PO (07:52)
[2025-04-11] MEDS: ALDACTONE 25 MG PO (07:52)
[2025-04-11] MEDS: TOPROL XL PO ×3 (07:52→20:33)
[2025-04-11] MEDS: ELIQUIS 5 MG PO ×2 (07:52→19:36)
[2025-04-11] MEDS: PLAVIX 75 MG PO (07:53)
[2025-04-11] MEDS: PROTONIX IV 40 MG IV ×2 (07:54→19:36)
[2025-04-11] MEDS: NSS (PRESERVATIVE FREE) 10 ML IV ×2 (07:55→19:36)
--- NOTE | 2025-04-11 08:28 | W.PN.CD ---
Today's Communication / Plan
-
hold lasix
add on lipase
check bp in right arm
eval for abd pain and nause
Impression / Plan
-
I/P: 70F with CAD status post prior CABG, VT, recovered ischemic cardiomyopathy, carotid artery disease status post left internal carotid stenting, PAD with prior PCI followed by Dr. De Souza, hypothyroidism and atrial flutter on Eliquis who presented
with
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
Acute hypoxic respiratory failure - in the setting of acute heart failure, plan as below
HFimpEF, acute on chronic
- LVEF this admit 45-50%
- Improved
- Lasix/Aldactone/Farxiga/HF BB---appears euvolemic to dry, will hold lasix and reassess in am for need
-
Nonischemic myocardial injury from heart failure, peak trop 0.130
Nausea/vomiting/diarrhea:
-pain in epigastrum reproducible on exam, radiating to the back and brought on by food
-I will add on lipase
-ask medicine to evaluat further.
Atrial flutter, type unknown - prior ablation
- Stable in sinus rhythm
- Oral Anticoagulation: Apixaban 5 mg twice daily
- [id number]: Score at least 5 (Heart failure, HTN, Vascular disease, age 65-74, female gender)
VT status post ICD
- Continue beta vicki
CAD
- Prior CABG and PCI's, on clopidogrel and apixaban, guessing due to PAD.
- Stable without chest pain
- Continue current medical therapy
PAD
-Bilateral carotid artery disease
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
-Severe ostial right renal artery stenosis
-Right external iliac and distal left external iliac stents
-On Eliquis, Plavix and Crestor
-Followed by Dr. De Souza
Mitral regurgitation, mild to moderate
Tricuspid regurgitation, mild to moderate
Hypercholesterolemia, does not tolerate higher doses of statin, continue rosuvastatin 5 mg
Former smoker, continued cessation recommended
Subjective:
C/o nausea and epigastric pain after any sort of po intake. This is the 'cp', it is always brought on by po intake. sometimes radating through to the back
Echo 04/09/2025:
1. Normal LV size with basal anterior septal, basal and mid inferior septal, and mid inferolateral wall hypokinesis. LVEF visually estimated 45 to 50%.
2. Normal right regular size and systolic function.
3. Mild mitral regurgitation.
4. Compared to echocardiogram report dated 04/03/2024 the LVEF is reported a bit lower. Previously the LVEF was estimated 55-60%. In October 2022 the LVEF was reported to be 45 to 50%. MR has improved from mild–moderate to mild.
Physical Exam
Vital Signs/Labs
Vital Signs
Temp Pulse Resp BP Pulse Ox
98.5 F 94 16 116/47 97
04/11/25 08:07 04/11/25 08:07 04/11/25 08:07 04/11/25 07:58 04/11/25 08:07
04/10/25 04/11/25 04/12/25
06:59 06:59 06:59
Actual Weight 122 lb 5.705 oz 121 lb 14.65 oz
04/11/25 03:11
04/11/25 03:11
PT 15.8 Sec (11.4-14.6) H 04/08/25 21:21
INR 1.23 04/08/25 21:21
APTT 29.0 Sec (23.4-35.0) 04/08/25 21:21
Magnesium 2.5 mg/dl (1.6-2.3) H 04/10/25 01:18
04/08/25 04/08/25
13:23 16:56
Cqj-R-Ogujbafucfq Pept > 19182 Cancelled
LAB Results
04/09/25 04/10/25 04/10/25
13:35 01:00 05:12
Troponin I 0.130 H* 0.101 H* 0.111 H*
04/10/25
11:00
Troponin I Cancelled
Physical Exam
Constitutional: No acute distress
Cardiovascular: Rhythm & rate is regular, Pedal edema is absent, JVD pressure is normal and Systolic murmur absent
Respiratory: Respiratory effort normal, Lungs clear to auscul., Wheeze Absent, Crackles Absent and Rhonchi Absent
Neuro/Psych: AO x 3
Data Reviewed
-
Date of Service: April 11, 2025
Medical Decision Making: Review of Case with other Provider (Dr Hudson and IVU nurse Ana, hold lasix, check bp on right)
[2025-04-11 10:20] LABS: Lipase 148 U/L (23-300)
--- NOTE | 2025-04-11 11:26 | W.PN.HOSP.TC ---
Today's Communication/Plan
-
Lipase normal
Encourage oral intake
Maintain on Protonix
Hold Toprol-XL
Monitor blood pressure
Diuretic on hold
Assessment / Plan
Assessment / Plan
1. Acute hypoxic respiratory failure - Improved
- required BiPAP and midflow support in ER
- concern for HF exacerbation avs aspiration pneumonitis
- Patient got IV Lasix, and has been able to wean off oxygen
- Currently patient on room air
2. Acute on chronic diastolic heart failure
- Chest x-ray reviewed and showing changes of mild to moderate pulmonary edema
- Continue follow-up weight and creatinine
- Echocardiogram showing some ventricular hypokinesis. Ejection fraction 45 to 50%
- Diuretic therapy on hold currently.
- Cardiology help appreciated
3. Chest pain
Troponin elevation
- Located in lower sternum epigastric region. Crushing/dull and constant in nature. Not associated with any diaphoresis. Nauseous although nausea was present in ER symptom and did not start with chest pain per se.
- Troponin trending down, 0.13 > 0.10 > 0.11. EKG showing paced rhythm
- Suspecting patient may have component of gastritis/esophagitis mimicking chest pain. Maintained on Protonix 40mg/bid for now.
- Discussed with cardiology and pain possibly of GI source. Lipase checked and within normal limit
4. Aspiration pneumonitis -ruled out
- Repeat chest x-ray yesterday showed almost complete resolution of infiltrate suggestive of initial finding being pulmonary edema rather than pneumonia
- Patient has been taken off of antibiotic, monitor. Will consider reinitiation if clinically warranted
- Patient increased white blood cell count likely from dexamethasone 10 mg given in the ER
5. History of ventricular tachycardia
History of ablation
- Patient have ICD in place and currently in paced rhythm
- Patient denies of having any history of tachyarrhythmia post ablation
5. Nausea and vo miting
- CT abdomen pelvis did not show any acute abnormality
- Patient have irregular GI and usually have egg [place] without eggs, question of possible food contamination
- Cancel further stool studies and monitor clinically
- Encourage oral intake patient remains anxious.
- Patient may have a component of gastritis/esohpagitis from n/v. maintained on IV protonix 40mg/bid
6. Coronary disease
History of CABG in 2004
-Maintained on aspirin/statin
7. Essential hypertension
- Aldactone added to the regimen yesterday.
- Patient blood pressure soft today, Toprol-XL held. Aldactone given in AM
PAD-follows with Dr. De Souza
History of carotid stent 2012
Chronic Anemia
Hypothyroidism-continue Synthroid
Hyperlipidemia-continue statin
Ex-smoker
DVT Px: Eliquis
Full code
Anticipated Discharge: 24 - 48 hours
Subjective/Interval History
-
Date of Service: April 11, 2025
Episode of chest discomfort in the night, bit better in the morning today
Still feeling nauseous and anxious to have any food
Objective Data
-
Labs:
Laboratory Results
04/11/25
03:11
WBC 16.7 H
Hgb 11.7 L
Hct 33.7 L
Plt Count 287
Sodium 132 L
Potassium 4.5
Chloride 99
Carbon Dioxide 23
BUN 22 H
Creatinine 0.8
Glucose 151 H
Calcium 10.2
Vital Signs:
Vital Signs
Temp Pulse Resp BP Pulse Ox
98.1 F 94 18 116/47 97
04/11/25 10:54 04/11/25 08:07 04/11/25 10:54 04/11/25 07:58 04/11/25 10:54
I&O
04/10/25 04/11/25 04/12/25
06:59 06:59 06:59
Intake Total 600 / 672.8 340.0 / 340.0
Output Total 750 / 750 550 / 550
Balance 600 / 672.8 -410.0 / -410.0 -550 / -550
Review of Systems
-
Respiratory: Denies Cough
Cardiac: Reports Chest Pain
Abdomen/GI: Reports Nausea
Physical Exam
-
General: Negative Appears in Distress
HEENT: Oxygen
Respiratory: Clear to Auscultation
Cardiac: Regular Rhythm and S1/S2; Negative Murmur
GI: Soft, Nontender and Nondistended
Neuro: Awake, Alert, Oriented and No Motor Deficits
Psych: Calm
--- NOTE | 2025-04-11 11:41 | PTCARENOTE ---
Assumed care of the pt @ 0700. Pt is AAOx3 A-paced on the monitor. Pt states that doesn't want to order breakfast because when she eats is when the pain starts. Pt ambulates to bathroom with sb assist. Call martel within reach. Spoke with
Ketty wants BP in right arm only due to h/o Lt brachial artery stenosis.
--- NOTE | 2025-04-11 11:50 | PTCARENOTE ---
Am Metoprolol held due to bp 118/47 and 93/51. Dr. Hudson aware
--- NOTE | 2025-04-11 14:19 | CM ---
Reviewed chart. Ms. Jacobs was transferred to IVU. Met with Ms. Jacobs to review discharge plans. She states prior to admission she resides with her significant other in a one story home with two steps to enter. She states prior to admission she
was independent with ambulation and adls. She states she does not have any DME in the home. She states she has never needed VNA Services She states she a prescription plan and uses [facility]. Will need to see her current functional level to see
if she will have any skilled care needs. Medical work-up in progress. The discharge plan is to return home with her significant other when medially stable.
--- NOTE | 2025-04-11 19:54 | PTCARENOTE ---
Rec'd pt at change of shift. Pt AAO*3, VSS, and SR/apaced on TELE monitor. Pt denies any pain or discomfort and only tolerating small amounts of ensure at a time to avoid epigastric pain. Pt now resting with call martel in reach and denies any
current pain or discomfort. Plan of care ongoing. See MAR and flowchart for full pt care and assessment.
--- NOTE | 2025-04-11 20:00 | PTCARENOTE ---
PT with bp in mid 90-100's. Pt complained of dizziness and feeling weak. 35 beat run of sinus tachicardia noticed in TELE monitor alarm review. HINA Langford notifed. Rec order to hold toprol 100mg and rec'd order to give 50mg PO toprol. Toprol
given as ordered. Plan of care ongoing.
[2025-04-11] MEDS: TOPROL XL 50 MG PO (20:33)
[2025-04-11] MEDS: ATIVAN 1 MG PO (22:43)
[2025-04-11] MEDS: MELATONIN PO (22:45)
[2025-04-12] VITALS (9 sets, daily range): BP systolic 87–119; BP diastolic 50–78; BMI 19.8
[2025-04-12] MEDS: SYNTHROID 100 MCG PO (04:26)
[2025-04-12 04:32] LABS: Hematocrit 37.0 % (37.0-47.0); Hemoglobin 13.0 g/dL (12.0-16.0); Mean Corp Hgb Conc. 35.1 g/dL (33.0-37.0); Mean Corpuscular Volume 96.4 fL (81.0-99.0); Platelet Count 295 10^3/uL (130-400); Red Cell Dist. Width 11.9 % (11.5-14.5)
[2025-04-12 05:05] LABS: Blood Urea Nitrogen 40 mg/dl (7-17); Calcium 9.8 mg/dl (8.4-10.2); Carbon Dioxide 26 mmol/L (22-30); Chloride 95 mmol/L (98-107); Estimated Creatinine Clearance 29 ml/min; Glucose 108 mg/dl (70-99); Potassium 4.1 mmol/L (3.5-5.1); Sodium 131 mmol/L (135-145); eGFR 37.03
--- NOTE | 2025-04-12 06:02 | PTCARENOTE ---
Creatinine increased from 0.8 to 1.5. HINA carter notified and rec'd order for IV fluids. Iv fluids now infusing as ordered. PT updated and plan of care ongoing.
[2025-04-12] MEDS: NSS 500 IV (06:03)
--- NOTE | 2025-04-12 08:24 | W.PN.CD ---
Today's Communication / Plan
-
reduce Toprol XL to 25mg bid due to low BP
Lasix/Aldactone/Farxiga were added earlier this admission: now with TORRI, will hold these meds, encourage PO intake, and trend Cr
Impression / Plan
-
I/P: 70F with CAD status post prior CABG, VT, recovered ischemic cardiomyopathy, carotid artery disease status post left internal carotid stenting, PAD with prior PCI followed by Dr. De Souza, hypothyroidism and atrial flutter on Eliquis who presented
with
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
Acute hypoxic respiratory failure - in the setting of acute heart failure, plan as below
HFimpEF, acute on chronic
- LVEF this admit 45-50%
- Improved
-reduce Toprol XL to 25mg bid due to low BP
- Lasix/Aldactone/Farxiga were added earlier this admission: now with TORRI, will hold these meds, encourage PO intake, and trend Cr
Nonischemic myocardial injury from heart failure, peak trop 0.130
Nausea/vomiting/diarrhea:
-pain in epigastrum reproducible on exam, radiating to the back and brought on by food
-lipase normal
-per medicine
Atrial flutter, type unknown - prior ablation
- Stable in sinus rhythm
- Oral Anticoagulation: Apixaban 5 mg twice daily
- [id number]: Score at least 5 (Heart failure, HTN, Vascular disease, age 65-74, female gender)
VT status post ICD; also brief SVT on tele
- Continue beta vicki
CAD
- Prior CABG and PCI's, on clopidogrel and apixaban, due to PAD.
- Stable without chest pain
- Continue current medical therapy
PAD
-Bilateral carotid artery disease
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
-Severe ostial right renal artery stenosis
-Right external iliac and distal left external iliac stents
-On Eliquis, Plavix and Crestor
-Followed by Dr. De Souza
Mitral regurgitation, mild to moderate
Tricuspid regurgitation, mild to moderate
Hypercholesterolemia, does not tolerate higher doses of statin, continue rosuvastatin 5 mg
Former smoker, continued cessation recommended
Echo 04/09/2025:
1. Normal LV size with basal anterior septal, basal and mid inferior septal, and mid inferolateral wall hypokinesis. LVEF visually estimated 45 to 50%.
2. Normal right regular size and systolic function.
3. Mild mitral regurgitation.
4. Compared to echocardiogram report dated 04/03/2024 the LVEF is reported a bit lower. Previously the LVEF was estimated 55-60%. In October 2022 the LVEF was reported to be 45 to 50%. MR has improved from mild–moderate to mild.
Physical Exam
Vital Signs/Labs
Vital Signs
Temp Pulse Resp BP Pulse Ox
98.3 F 60 18 105/58 100
04/12/25 07:36 04/12/25 06:00 04/12/25 07:36 04/12/25 04:05 04/12/25 07:36
04/11/25 04/12/25 04/13/25
06:59 06:59 06:59
Actual Weight 55.3 kg 54.1 kg
04/12/25 04:21
04/12/25 04:22
PT 15.8 Sec (11.4-14.6) H 04/08/25 21:21
INR 1.23 04/08/25 21:21
APTT 29.0 Sec (23.4-35.0) 04/08/25 21:21
Magnesium 2.5 mg/dl (1.6-2.3) H 04/10/25 01:18
04/08/25 04/08/25
13:23 16:56
Sie-Z-Ucigrbssfli Pept > 66630 Cancelled
LAB Results
04/09/25 04/10/25 04/10/25
13:35 01:00 05:12
Troponin I 0.130 H* 0.101 H* 0.111 H*
04/10/25
11:00
Troponin I Cancelled
Physical Exam
Constitutional: No acute distress and Comfortable
EENT: Moist mucous membranes
Cardiovascular: Rhythm & rate is regular, Pedal edema is absent, JVD pressure is normal and Systolic murmur absent
Respiratory: Respiratory effort normal and Lungs clear to auscul.
Neuro/Psych: AO x 3
Data Reviewed
-
Date of Service: April 12, 2025
EKG: Other (Tele: Ap, brief SVT)
Labs: Labs Reviewed by me
[2025-04-12] MEDS: TOPROL XL 25 MG PO ×2 (08:46→19:51)
[2025-04-12] MEDS: CRESTOR 5 MG PO (08:46)
[2025-04-12] MEDS: PLAVIX 75 MG PO (08:47)
[2025-04-12] MEDS: ELIQUIS 5 MG PO ×2 (08:47→19:50)
[2025-04-12] MEDS: PROTONIX IV 40 MG IV ×2 (08:47→19:51)
[2025-04-12] MEDS: NSS (PRESERVATIVE FREE) 10 ML IV ×2 (08:47→19:50)
[2025-04-12] MEDS: FARXIGA PO (08:50)
[2025-04-12] MEDS: ALDACTONE PO (08:50)
--- NOTE | 2025-04-12 10:56 | CM ---
Reviewed chart. Met with Mrs. Jacobs to review discharge plans. She states she is feeling better. We reviewed VNA Services and she is agreeable to VNA Services. She has selected [facility]. Telephone call to [facility] to make the
referral. Sent the referral. Prior to admission she resides with her significant other in a one story home with two steps to enter. Prior to admission she was independent with ambulation and adls. She does not have any DME in the home. She has
never needed VNA Services She has a prescription plan and uses [facility]. Will need to see her current functional level to see if she will have any skilled care needs. Medical work-up in progress. The discharge plan is to return home with her
significant other and [facility] when medially stable.
--- NOTE | 2025-04-12 11:30 | PTCARENOTE ---
Assumed care of the pt @ 0700. Pt is AAOx3 A paced on the monitor BP stable IVF were discontinued. Pt able to drink Ensure and a bowl of cereal without complaints. Dr Biggs adjusted Toprol dose and held diuretics. Pt sitting up in chair and call martel
within reach. POC discussed with pt.
--- NOTE | 2025-04-12 14:07 | W.PN.HOSP.TC ---
Today's Communication/Plan
-
f/u renal function
Encourage oral liquid intake
possible d/c in 24 hrs
Assessment / Plan
Assessment / Plan
1. Acute hypoxic respiratory failure - Improved
- required BiPAP and midflow support in ER
- Currently patient on room air after diuretic thearpy
2. Acute on chronic diastolic heart failure
- Chest x-ray reviewed and showing changes of mild to moderate pulmonary edema
- Continue follow-up weight and creatinine
- Echocardiogram showing some ventricular hypokinesis. Ejection fraction 45 to 50%
- Diuretic therapy on hold currently.
- Cardiology help appreciated
3. Chest pain - improving
Troponin elevation
- Located in lower sternum epigastric region. Crushing/dull and constant in nature. Not associated with any diaphoresis. Nauseous although nausea was present in ER symptom and did not start with chest pain per se.
- Troponin trending down, 0.13 > 0.10 > 0.11. EKG showing paced rhythm
- Suspecting patient may have component of gastritis/esophagitis mimicking chest pain. Maintained on Protonix 40mg/bid for now.
- Discussed with cardiology and pain possibly of GI source. Lipase checked and within normal limit
4. Aspiration pneumonitis -ruled out
- Repeat chest x-ray yesterday showed almost complete resolution of infiltrate suggestive of initial finding being pulmonary edema rather than pneumonia
- Patient has been taken off of antibiotic, monitor. Will consider reinitiation if clinically warranted
- Patient increased white blood cell count likely from dexamethasone 10 mg given in the ER
5. History of ventricular tachycardia
History of ablation
- Patient have ICD in place and currently in paced rhythm
- Patient denies of having any history of tachyarrhythmia post ablation
5. Nausea and vomiting - Improving
- CT abdomen pelvis did not show any acute abnormality
- Patient have irregular GI and usually have egg [place] without eggs, question of possible food contamination
- Cancel further stool studies and monitor clinically
- Encourage oral intake patient remains anxious.
- Patient may have a component of gastritis/esohpagitis from n/v. maintained on IV protonix 40mg/bid
6. Coronary disease
History of CABG in 2004
-Maintained on aspirin/statin
7. Essential hypertension
- Aldactone held. Metoprolol dose decreased.
8. TORRI
- Combination of nephrotoxic medication and diuretic usage
- Stop further IV fluid as patient is volume optimized from heart failure perspective
- Will let renal function drift down back to normal, encourage oral intake
9. Hyponatremia
- Mild, monitor
PAD-follows with Dr. De Souza
History of carotid stent 2012
Chronic Anemia
Hypothyroidism-continue Synthroid
Hyperlipidemia-continue statin
Ex-smoker
DVT Px: Eliquis
Full code
Care plan discussed with cardiology
Anticipated Discharge: Within 24 hours
Subjective/Interval History
-
Date of Service: April 12, 2025
Clinically feeling better
Nausea has improved
No shortness of breath
Minimal dizziness with ambulation
Objective Data
-
Labs:
Laboratory Results
04/12/25 04/12/25
04:21 04:22
WBC 13.9 H
Hgb 13.0
Hct 37.0
Plt Count 295
Sodium 131 L
Potassium 4.1
Chloride 95 L
Carbon Dioxide 26
BUN 40 H
Creatinine 1.5 H
Glucose 108 H
Calcium 9.8
Vital Signs:
Vital Signs
Temp Pulse Resp BP Pulse Ox
98.2 F 65 16 103/54 97
04/12/25 11:04 04/12/25 12:17 04/12/25 11:04 04/12/25 12:17 04/12/25 11:10
I&O
04/11/25 04/12/25 04/13/25
06:59 06:59 06:59
Intake Total 340.0 / 340.0 125 / 125
Output Total 750 / 750 1350 / 1350 100 / 100
Balance -410.0 / -410.0 -1225 / -1225 -100 / -100
Review of Systems
-
Respiratory: Reports No Symptoms
Cardiac: Reports No Symptoms
Abdomen/GI: Reports Nausea; Denies Abdominal Pain or Vomiting
Physical Exam
-
General: Negative Appears in Distress
HEENT: Oxygen
Respiratory: Clear to Auscultation
Cardiac: Regular Rhythm and S1/S2; Negative Murmur
GI: Soft, Nontender and Nondistended
Neuro: Awake, Alert, Oriented and No Motor Deficits
Psych: Calm
--- NOTE | 2025-04-12 18:13 | PTCARENOTE ---
Pt's bp 87/74 repeat 101/53@ 1530. Dr Hudson notified and ordered Midodrine prn. 1740 repeat bp 94/64 Midodrine given as ordered.
[2025-04-12] MEDS: MELATONIN PO (22:39)
[2025-04-12] MEDS: ATIVAN 1 MG PO (22:43)
[2025-04-13] VITALS (7 sets, daily range): BP systolic 93–146; BP diastolic 42–60; BMI 20.1
--- NOTE | 2025-04-13 01:02 | PTCARENOTE ---
Pt. has had no complaints of chest pain or abdominal discomfort, VSS, NSR with A & AV pacing on the monitor. Able to ambulate with minimal assistx1 & RW. SBP 99 following Toprol admin. Pt. sleeping.
[2025-04-13] MEDS: TYLENOL 650 MG PO ×2 (04:16→22:06)
[2025-04-13] MEDS: SYNTHROID 100 MCG PO (04:16)
[2025-04-13 05:31] LABS: Blood Urea Nitrogen 43 mg/dl (7-17); Calcium 9.2 mg/dl (8.4-10.2); Carbon Dioxide 27 mmol/L (22-30); Chloride 96 mmol/L (98-107); Estimated Creatinine Clearance 32 ml/min; Glucose 108 mg/dl (70-99); Potassium 4.3 mmol/L (3.5-5.1); Sodium 133 mmol/L (135-145); eGFR 40.22
--- NOTE | 2025-04-13 06:39 | W.PN.CD ---
Today's Communication / Plan
-
Creatinine appears to be improving down to 1.4. Continue to monitor
Continue off diuretic
Additional treatment of GI issues as directed by hospitalist. Patient still has some abdominal discomfort and has some postprandial discomfort. If patient continues to have symptoms then additional GI input may be required.
Impression / Plan
-
I/P: 70F with CAD status post prior CABG, VT, recovered ischemic cardiomyopathy, carotid artery disease status post left internal carotid stenting, PAD with prior PCI followed by Dr. De Souza, hypothyroidism and atrial flutter on Eliquis who presented
with
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
Acute hypoxic respiratory failure - in the setting of acute heart failure,
- Improved. Plan regarding heart failure as below
.
HFimpEF, acute on chronic
- LVEF this admit 45-50%
- Improved
-reduce Toprol XL to 25mg bid due to low BP
- Lasix/Aldactone/Farxiga were added earlier this admission: now with TORRI, will hold these meds, encourage PO intake, and trend Cr
- Appears creatinine is improving. Will wait until creatinine is close to baseline prior to considering further initiation of meds. Note patient had been on Farxiga as an outpatient. Would not resume Aldactone due to blood pressure issue and
recent TORRI.
Nonischemic myocardial injury from heart failure, peak trop 0.130
GI. Patient listed as having had nausea/vomiting/diarrhea: Currently with some residual abdominal discomfort. Worse after eating. Mild right-sided discomfort with palpation on exam. Abdominal CT without report of acute abnormality. 'Question of
food contamination based on hospitalist notes. Patient continues to have abdominal discomfort and may need to consider additional GI assessment. Note patient does have significant history of vascular disease and if she continues to have
postprandial pain bowel ischemia needs to be a consideration.
Atrial flutter, type unknown - prior ablation
- Stable in sinus rhythm
- Oral Anticoagulation: Apixaban 5 mg twice daily
- [id number]: Score at least 5 (Heart failure, HTN, Vascular disease, age 65-74, female gender)
VT status post ICD; also brief SVT on tele
- Continue beta vicki
CAD
- Prior CABG and PCI's, on clopidogrel and apixaban, due to PAD.
- Stable without chest pain
- Continue current medical therapy
PAD
-Bilateral carotid artery disease
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
-Severe ostial right renal artery stenosis
-Right external iliac and distal left external iliac stents
-On Eliquis, Plavix and Crestor
-Followed by Dr. De Souza
Mitral regurgitation, mild to moderate
Tricuspid regurgitation, mild to moderate
Hypercholesterolemia, does not tolerate higher doses of statin, continue rosuvastatin 5 mg
Former smoker, continued cessation recommended
Echo 04/09/2025:
1. Normal LV size with basal anterior septal, basal and mid inferior septal, and mid inferolateral wall hypokinesis. LVEF visually estimated 45 to 50%.
2. Normal right regular size and systolic function.
3. Mild mitral regurgitation.
4. Compared to echocardiogram report dated 04/03/2024 the LVEF is reported a bit lower. Previously the LVEF was estimated 55-60%. In October 2022 the LVEF was reported to be 45 to 50%. MR has improved from mild–moderate to mild.
Physical Exam
Vital Signs/Labs
Vital Signs
Temp Pulse Resp BP Pulse Ox
98.8 F 60 18 116/58 99
04/13/25 04:07 04/13/25 05:00 04/13/25 04:07 04/13/25 04:07 04/13/25 04:07
04/11/25 04/12/25 04/13/25
06:59 06:59 06:59
Actual Weight 55.3 kg 54.1 kg 54.8 kg
04/12/25 04:21
04/13/25 04:04
PT 15.8 Sec (11.4-14.6) H 04/08/25 21:21
INR 1.23 04/08/25 21:21
APTT 29.0 Sec (23.4-35.0) 04/08/25 21:21
Magnesium 2.5 mg/dl (1.6-2.3) H 04/10/25 01:18
04/08/25 04/08/25
13:23 16:56
[id number] Pept > [id number] Cancelled
LAB Results
04/10/25
11:00
Troponin I Cancelled
Physical Exam
Constitutional: No acute distress
Cardiovascular: Rhythm & rate is regular
Respiratory: Wheeze Absent and Rhonchi Absent
GI: Soft, Non tender and Other (Mild discomfort with palpation of right upper to mid abdomen)
Neuro/Psych: Alert
Data Reviewed
-
Date of Service: April 13, 2025
Medical Decision Making: Reviewed Test Results
Medical Tests (PFT, Pathology etc): Report Reviewed by me
Labs: Labs Reviewed by me
--- NOTE | 2025-04-13 08:00 | PTCARENOTE ---
Assumed care of pt from prev nsg shift; Pt AAOX3 w/no c/o CP or SOB. Pt does c/o indigestion & nausea. Pt's scheduled IV protonix administered as ordered & pt declining anything else at this time. VSS w/HR in the 60's & BP 111/42 this AM. Pt is SR
w/freq A-pacing & AV-pacing. Discussed plan of care w/pt & pt w/no addtl needs at this time. Call martel within reach.
[2025-04-13] MEDS: TOPROL XL 25 MG PO ×2 (09:11→19:24)
[2025-04-13] MEDS: PROTONIX IV 40 MG IV ×2 (09:13→19:25)
[2025-04-13] MEDS: NSS (PRESERVATIVE FREE) 10 ML IV ×2 (09:13→19:25)
[2025-04-13] MEDS: ELIQUIS 5 MG PO ×2 (09:14→19:24)
[2025-04-13] MEDS: PLAVIX 75 MG PO (09:14)
[2025-04-13] MEDS: CRESTOR 5 MG PO (09:14)
--- NOTE | 2025-04-13 14:03 | W.PN.HOSP.TC ---
Today's Communication/Plan
-
Continue symptomatic care for nausea
GI consultation
Encourage oral intake
Follow-up renal function
Hold diuretics
Assessment / Plan
Assessment / Plan
1. Acute hypoxic respiratory failure - Improved
- required BiPAP and midflow support in ER
- Currently patient on room air after diuretic thearpy
2. Acute on chronic diastolic heart failure
- Chest x-ray reviewed and showing changes of mild to moderate pulmonary edema
- Continue follow-up weight and creatinine
- Echocardiogram showing some ventricular hypokinesis. Ejection fraction 45 to 50%
- Diuretic therapy on hold currently.
- Cardiology help appreciated
3. Chest pain - improving
Troponin elevation
- Located in lower sternum epigastric region. Crushing/dull and constant in nature. Not associated with any diaphoresis. Nauseous although nausea was present in ER symptom and did not start with chest pain per se.
- Troponin trending down, 0.13 > 0.10 > 0.11. EKG showing paced rhythm
- Suspecting patient may have component of gastritis/esophagitis mimicking chest pain. Maintained on Protonix 40mg/bid for now.
4. Aspiration pneumonitis -ruled out
- Repeat chest x-ray yesterday showed almost complete resolution of infiltrate suggestive of initial finding being pulmonary edema rather than pneumonia
- Patient has been taken off of antibiotic, monitor. Will consider reinitiation if clinically warranted
- Patient increased white blood cell count likely from dexamethasone 10 mg given in the ER
5. History of ventricular tachycardia
History of ablation
- Patient have ICD in place and currently in paced rhythm
- Patient denies of having any history of tachyarrhythmia post ablation
5. Nausea and vomiting - Improving
- CT abdomen pelvis did not show any acute abnormality
- Patient have irregular GI and usually have egg [place] without eggs, question of possible food contamination
- Cancel further stool studies and monitor clinically
- Lipase wnl
- Patient complaining minimal nausea. Cardio recommended GI evaluation as question of mesenteric ischemia, patient symptoms and not typical postprandial nature and very acute onset. no other signs to suggest acute ischemic gut.
- Patient may have a component of gastritis/esophagitis from n/v. maintained on IV Protonix 40mg/bid
- GI consultation requested in light of persistent symptoms
6. Coronary disease
History of CABG in 2004
-Maintained on aspirin/statin
7. Essential hypertension
- Aldactone held. Metoprolol dose decreased.
8. TORRI
- Combination of nephrotoxic medication and diuretic usage
- Stop further IV fluid as patient is volume optimized from heart failure perspective
- Will let renal function drift down back to normal, encourage oral intake
9. Hyponatremia
- Mild, monitor
PAD-follows with Dr. De Souza
History of carotid stent 2012
Chronic Anemia
Hypothyroidism-continue Synthroid
Hyperlipidemia-continue statin
Ex-smoker
DVT Px: Eliquis
Full code
Care plan discussed with cardiology
Anticipated Discharge: 24 - 48 hours
Subjective/Interval History
-
Date of Service: April 13, 2025
Complaining of minimal nausea again today
No significant abdominal pain
Denies any other issues
Objective Data
-
Labs:
Laboratory Results
04/13/25
04:04
Sodium 133 L
Potassium 4.3
Chloride 96 L
Carbon Dioxide 27
BUN 43 H
Creatinine 1.4 H
Glucose 108 H
Calcium 9.2
Vital Signs:
Vital Signs
Temp Pulse Resp BP Pulse Ox
98.2 F 60 18 93/53 100
04/13/25 11:40 04/13/25 11:43 04/13/25 11:40 04/13/25 11:43 04/13/25 11:43
I&O
04/12/25 04/13/25 04/14/25
06:59 06:59 05:59
Intake Total 125 / 125 480 / 480 480 / 480
Output Total 1350 / 1350 700 / 700 200 / 200
Balance -1225 / -1225 -220 / -220 280 / 280
Review of Systems
-
Respiratory: Reports No Symptoms
Cardiac: Reports No Symptoms
Abdomen/GI: Reports Nausea; Denies Abdominal Pain
Physical Exam
-
General: Negative Appears in Distress
HEENT: Negative Oxygen
Respiratory: Clear to Auscultation
Cardiac: Regular Rhythm and S1/S2; Negative Murmur
GI: Soft, Nontender and Nondistended
Neuro: Awake, Alert, Oriented and No Motor Deficits
Psych: Calm
[2025-04-13] MEDS: MELATONIN PO (22:02)
[2025-04-13] MEDS: ATIVAN 1 MG PO (22:06)
[2025-04-14] VITALS (14 sets, daily range): BP systolic 100–133; BP diastolic 41–74; PULSE 63–74; O2SAT 98
[2025-04-14] MEDS: TYLENOL 650 MG PO ×3 (04:19→22:03)
[2025-04-14] MEDS: SYNTHROID 100 MCG PO (04:19)
[2025-04-14 04:56] LABS: Blood Urea Nitrogen 35 mg/dl (7-17); Calcium 9.6 mg/dl (8.4-10.2); Carbon Dioxide 30 mmol/L (22-30); Chloride 98 mmol/L (98-107); Estimated Creatinine Clearance 34 ml/min; Glucose 106 mg/dl (70-99); Potassium 4.8 mmol/L (3.5-5.1); Sodium 132 mmol/L (135-145); eGFR 43.96
--- NOTE | 2025-04-14 05:12 | PTCARENOTE ---
Pt. had no complaints of nausea overnight, BP's stable, NSR with A-pacing on the monitor. OOB with RW & assist x 1. Voiding without difficulty. Requests Ativan for sleep which she states works very well for her.
--- NOTE | 2025-04-14 07:15 | W.PN.CD ---
Today's Communication / Plan
-
Creatinine continues to improve but still above baseline with creatinine 1.3 GI issues appear to be improving patient's abdominal discomfort improved. Continue with diet advancement. Patient remains off diuretic. Ultimately when her creatinine
gets back to baseline I would likely put her on Lasix 20 mg Tuesday and Tuesday and then monitor renal function closely.
Impression / Plan
-
I/P: 70F with CAD status post prior CABG, VT, recovered ischemic cardiomyopathy, carotid artery disease status post left internal carotid stenting, PAD with prior PCI followed by Dr. De Souza, hypothyroidism and atrial flutter on Eliquis who presented
with
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
Acute hypoxic respiratory failure - in the setting of acute heart failure,
- Improved. Plan regarding heart failure as below
.
HFimpEF, acute on chronic
- LVEF this admit 45-50%
- Improved
-reduce Toprol XL to 25mg bid due to low BP
- Lasix/Aldactone/Farxiga were added earlier this admission: now with TORRI, will hold these meds, encourage PO intake, and trend Cr
- Appears creatinine is improving. Will wait until creatinine is close to baseline prior to considering further initiation of meds. GI issues have improved and she has adequate oral intake . Farxiga is listed on is on her outpatient meds but
patient denies taking this medication at home of note it was not listed on her last outpatient visit in November in our office. Possible was prescribed in the past and there was an issue with cost and she did not fill it.
Nonischemic myocardial injury from heart failure, peak trop 0.130
GI. Patient listed as having had nausea/vomiting/diarrhea: Currently with some residual abdominal discomfort. Worse after eating. Mild right-sided discomfort with palpation on exam. Abdominal CT without report of acute abnormality. 'Question of
food contamination based on hospitalist notes. Patient continues to have abdominal discomfort and may need to consider additional GI assessment. Note patient does have significant history of vascular disease and if she continues to have
postprandial pain bowel ischemia needs to be a consideration.
Atrial flutter, type unknown - prior ablation
- Stable in sinus rhythm
- Oral Anticoagulation: Apixaban 5 mg twice daily
- [id number]: Score at least 5 (Heart failure, HTN, Vascular disease, age 65-74, female gender)
VT status post ICD; also brief SVT on tele
- Continue beta vicki
CAD
- Prior CABG and PCI's, on clopidogrel and apixaban, due to PAD.
- Stable without chest pain
- Continue current medical therapy
PAD
-Bilateral carotid artery disease
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
-Severe ostial right renal artery stenosis
-Right external iliac and distal left external iliac stents
-On Eliquis, Plavix and Crestor
-Followed by Dr. De Souza
Mitral regurgitation, mild to moderate
Tricuspid regurgitation, mild to moderate
Hypercholesterolemia, does not tolerate higher doses of statin, continue rosuvastatin 5 mg
Former smoker, continued cessation recommended
Echo 04/09/2025:
1. Normal LV size with basal anterior septal, basal and mid inferior septal, and mid inferolateral wall hypokinesis. LVEF visually estimated 45 to 50%.
2. Normal right regular size and systolic function.
3. Mild mitral regurgitation.
4. Compared to echocardiogram report dated 04/03/2024 the LVEF is reported a bit lower. Previously the LVEF was estimated 55-60%. In October 2022 the LVEF was reported to be 45 to 50%. MR has improved from mild–moderate to mild.
Physical Exam
Vital Signs/Labs
Vital Signs
Temp Pulse Resp BP Pulse Ox
98.3 F 60 16 113/52 99
04/14/25 04:08 04/14/25 05:00 04/14/25 04:08 04/14/25 04:08 04/14/25 04:08
04/13/25 04/14/25 04/15/25
06:59 05:59 06:59
Actual Weight 54.8 kg
04/12/25 04:21
04/14/25 04:19
PT 15.8 Sec (11.4-14.6) H 04/08/25 21:21
INR 1.23 04/08/25 21:21
APTT 29.0 Sec (23.4-35.0) 04/08/25 21:21
Magnesium 2.5 mg/dl (1.6-2.3) H 04/10/25 01:18
04/08/25 04/08/25
13:23 16:56
[id number] Pept > [id number] Cancelled
Physical Exam
Constitutional: No acute distress
Cardiovascular: Rhythm & rate is regular
Respiratory: Wheeze Absent and Rhonchi Absent
GI: Soft and Non tender
Neuro/Psych: Alert and Oriented
Data Reviewed
-
Date of Service: April 14, 2025
Medical Decision Making: Reviewed Test Results
X-Ray/CT/US/MRI/NUC/PET: Report Reviewed by me
Medical Tests (PFT, Pathology etc): Report Reviewed by me
Labs: Labs Reviewed by me
--- NOTE | 2025-04-14 08:41 | CON.GI ---
Consultation
-
Date/Time Consultation Performed: 04/14/25
Performing Provider: Efren Baptiste MD
Reason for Consultation: Nausea
Medical History
Chief Complaint / HPI
Chief Complaint: nausea
History of Present Illness:
The patient is a 70-year-old female past medical history as noted who presents after ingestion of eggs with onset of vomiting, abdominal pain, diarrhea and shortness of breath, found to be in heart failure. She states that prior to her ingestion of
eggs she was feeling well with no abdominal pain, nausea, vomiting or diarrhea. She has a known true allergy to eggs, though has been slightly more tolerant of accidental ingestions recently. She ordered eggs [employer] with eggs on the side though
after ingestion had acute symptoms. She has CT scan that did not show any significant abdominal pathology on April 08 with IV contrast. She is now feeling much better overall, though fatigued. She ate breakfast without difficulty. Has not
had any further diarrhea and denied any abdominal pain today with breakfast. Her breathing is much improved though still not at her baseline.
Past Medical History
Past Medical History: Other (hypertension hypercholesterolemia atrial flutter paroxysmal ventricular tachycardia hypothyroidism coronary artery disease peripheral vascular disease peripheral arterial disease)
Past Surgical History: Other (CABG in [facility] 2002 Left main stenting 2013 DH 2 c-sections cataract both eyes Cardiac Cath 05/2017 cardiac cath 12/28/2022 defib 2024)
Social History
Tobacco: Former Smoker
Alcohol: None
Family History
Family History: Reviewed & Not Pertinent
Allergies / Home Medications
Allergy/AdvReac Type Severity Reaction Status Date / Time
codeine Allergy made her Verified 04/08/25 12:26
'hyper'
and more
awake
egg Allergy 'severe Verified 04/08/25 12:26
indigestion'
Penicillins Allergy Hives,swelling; Verified 04/09/25 13:24
tolerated
ceftriaxone
04/08/25
�Medication �Instructions �Recorded
levothyroxine 100 mcg tablet 100 mcg PO DAILY Thyroid 12/15/21
(Synthroid)
apixaban 5 mg tablet (Eliquis) 5 mg PO BID atrial fibrillation 12/16/21
#60 tabs
rosuvastatin 5 mg tablet 5 mg PO DAILY High cholesterol 10/17/22
vitamin B complex 1 tab PO DAILY Supplement ##0 08/30/24
acetaminophen 325 mg tablet 650 mg PO DAILYPRN PRN mild pain 04/08/25
(Tylenol)
amlodipine 2.5 mg tablet (Norvasc) 2.5 mg PO DAILY Blood Pressure 04/08/25
clopidogrel 75 mg tablet 75 mg PO DAILY Blood Clot 04/08/25
Prevention/Tx
metoprolol tartrate 100 mg tablet 100 mg PO BID Blood Pressure 04/08/25
therapeutic multivitamin 1 tab PO DAILY Supplement 04/08/25
dapagliflozin propanediol 10 mg 10 mg PO DAILY #30 tabs 04/09/25
tablet
Review of Systems
-
All other systems: A 12 pt ROS was Negative except as stated above in HPI
Vital Signs
Temp Pulse Resp BP Pulse Ox
97.6 F 60 15 100/50 99
04/14/25 07:38 04/14/25 08:00 04/14/25 07:38 04/14/25 07:38 04/14/25 07:38
Physical Exam
Exam
General: NAD
HEENT: MMM, anicteric, no lymphadenopathy
Heart: Regular, no murmurs
Lungs: CTA bilaterally
Abdomen: normal bowel sounds, soft, no tenderness, no rebound or guarding, no masses, bruits or ascites
Extremeties: no edema
Skin: no rashes
Results
WBC 13.9 10^3/uL (4.8-10.8) H 04/12/25 04:21
Hgb 13.0 g/dL (12.0-16.0) 04/12/25 04:21
Hct 37.0 % (37.0-47.0) 04/12/25 04:21
MCV 96.4 fL (81.0-99.0) 04/12/25 04:21
Plt Count 295 10^3/uL (130-400) 04/12/25 04:21
Absolute Neuts (auto) 15.6 10^3/uL (1.4-6.5) H 04/08/25 13:23
PT 15.8 Sec (11.4-14.6) H 04/08/25 21:21
INR 1.23 04/08/25 21:21
APTT 29.0 Sec (23.4-35.0) 04/08/25 21:21
Sodium 132 mmol/L (135-145) L 04/14/25 04:19
Potassium 4.8 mmol/L (3.5-5.1) 04/14/25 04:19
Chloride 98 mmol/L (98-107) 04/14/25 04:19
Carbon Dioxide 30 mmol/L (22-30) 04/14/25 04:19
BUN 35 mg/dl (7-17) H 04/14/25 04:19
Creatinine 1.3 mg/dL (0.6-1.0) H 04/14/25 04:19
Calcium 9.6 mg/dl (8.4-10.2) 04/14/25 04:19
Total Bilirubin 0.8 mg/dl (0.2-1.3) 04/08/25 13:23
AST 43 U/L (14-36) H 04/08/25 13:23
ALT 13 U/L (0-35) 04/08/25 13:23
Alkaline Phosphatase 80 U/L (38-126) 04/08/25 13:23
Lipase 148 U/L (23-300) 04/11/25 03:11
Diagnostic Image Results:
CT:
IMPRESSION:
Changes at the lung bases which could reflect congestive heart failure, bibasilar pneumonia, and/or atelectasis. Clinical correlation recommended.
No acute inflammatory changes within the abdomen or pelvis.
The appendix is normal.
Mild diverticulosis without acute diverticulitis. No evidence of bowel obstruction. Much of the colon is underdistended, which limits assessment of bowel wall thickening.
No obstructive uropathy.
Fatty infiltration of liver.
Prior GI Procedures:
EGD:
Colonoscopy:
Assessment / Plan
-
1. Vomiting/diarrhea/abdominal pain: Acutely after egg ingestion for which she has a known allergy, with symptoms that more reflect probable anaphylaxis, which probably precipitated her heart failure. Overall she is much improved, tolerated
breakfast today without difficulty. I think ischemia seems less likely given her improvement, negative CT scan with IV contrast and no symptoms prior to her egg ingestion. At this point given resolution of symptoms we will hold on further GI
workup for now. Will sign off now, though please call back with any further questions.
-
-
Thank you for consultation and allowing me to participate in the patient's care. Please call the solar installation foreman GI physician during the after hours with any questions or concerns.
[2025-04-14] MEDS: NSS (PRESERVATIVE FREE) 10 ML IV ×2 (08:52→20:29)
[2025-04-14] MEDS: TOPROL XL 25 MG PO ×2 (08:53→20:29)
[2025-04-14] MEDS: PROTONIX IV 40 MG IV ×2 (08:53→20:29)
[2025-04-14] MEDS: PLAVIX 75 MG PO (08:53)
[2025-04-14] MEDS: CRESTOR 5 MG PO (08:53)
[2025-04-14] MEDS: ELIQUIS 5 MG PO ×2 (08:53→20:29)
--- NOTE | 2025-04-14 09:17 | PTCARENOTE ---
Assumed care. Patient walking in room with rolling walker to the bathroom. Tolerated breakfast, no abdominal pain, nausea or diarrhea. She does complain of feeling unwell and has lack of energy. A-paced in the 60's. VSS, using call martel for
assistance
--- NOTE | 2025-04-14 14:58 | W.PN.HOSP.TC ---
Today's Communication/Plan
-
check ortho vitals
pt evaluation
diuretics on hold
encourage oral intake as tolerated
Assessment / Plan
Assessment / Plan
1. Acute hypoxic respiratory failure - Improved
- required BiPAP and midflow support in ER
- Currently patient on room air after diuretic thearpy
2. Acute on chronic diastolic heart failure
- Chest x-ray reviewed and showing changes of mild to moderate pulmonary edema
- Continue follow-up weight and creatinine
- Echocardiogram showing some ventricular hypokinesis. Ejection fraction 45 to 50%
- Diuretic therapy on hold currently.
- Cardiology help appreciated
3. Chest pain - improving
Troponin elevation
- Located in lower sternum epigastric region. Crushing/dull and constant in nature. Not associated with any diaphoresis. Nauseous although nausea was present in ER symptom and did not start with chest pain per se.
- Troponin trending down, 0.13 > 0.10 > 0.11. EKG showing paced rhythm
- Suspecting patient may have component of gastritis/esophagitis mimicking chest pain. Maintained on Protonix 40mg/bid for now.
4. Aspiration pneumonitis -ruled out
- Repeat chest x-ray yesterday showed almost complete resolution of infiltrate suggestive of initial finding being pulmonary edema rather than pneumonia
- Patient has been taken off of antibiotic, monitor. Will consider reinitiation if clinically warranted
- Patient increased white blood cell count likely from dexamethasone 10 mg given in the ER
5. History of ventricular tachycardia
History of ablation
- Patient have ICD in place and currently in paced rhythm
- Patient denies of having any history of tachyarrhythmia post ablation
5. Nausea and vomiting - Improving
- CT abdomen pelvis did not show any acute abnormality
- Patient have irregular GI and usually have egg [place] without eggs, question of possible food contamination
- Cancel further stool studies and monitor clinically
- Lipase wnl
- Patient complaining minimal nausea. Cardio recommended GI evaluation as question of mesenteric ischemia, patient symptoms and not typical postprandial nature and very acute onset. no other signs to suggest acute ischemic gut.
- Patient may have a component of gastritis/esophagitis from n/v. maintained on IV Protonix 40mg/bid
- GI input noted and help appreciated.
6. Coronary disease
History of CABG in 2004
-Maintained on aspirin/statin
7. Essential hypertension
- Aldactone held. Metoprolol dose decreased.
8. TORRI
- Combination of nephrotoxic medication and diuretic usage
- Stop further IV fluid as patient is volume optimized from heart failure perspective
- Will let renal function drift down back to normal, encourage oral intake
9. Hyponatremia
- Mild, monitor
PAD-follows with Dr. De Souza
History of carotid stent 2012
Chronic Anemia
Hypothyroidism-continue Synthroid
Hyperlipidemia-continue statin
Ex-smoker
DVT Px: Eliquis
Full code
Care plan discussed with cardiology
Anticipated Discharge: Within 24 hours
Subjective/Interval History
-
Date of Service: April 14, 2025
no overt vomiting episode, some nausea at best
dizziness while walking
no chest pain
Objective Data
-
Labs:
Laboratory Results
04/14/25
04:19
Sodium 132 L
Potassium 4.8
Chloride 98
Carbon Dioxide 30
BUN 35 H
Creatinine 1.3 H
Glucose 106 H
Calcium 9.6
Vital Signs:
Vital Signs
Temp Pulse Resp BP Pulse Ox
97.9 F 62 15 100/50 97
04/14/25 11:00 04/14/25 11:00 04/14/25 11:00 04/14/25 07:38 04/14/25 11:00
I&O
04/13/25 04/14/25 04/15/25
06:59 05:59 06:59
Intake Total 480 / 480 960 / 960 480 / 480
Output Total 700 / 700 1000 / 1000 800 / 800
Balance -220 / -220 -40 / -40 -320 / -320
Review of Systems
-
Respiratory: Reports No Symptoms
Cardiac: Reports No Symptoms
Abdomen/GI: Reports Nausea; Denies Abdominal Pain or Vomiting
Physical Exam
-
General: Negative Appears in Distress
HEENT: Negative Oxygen
Respiratory: Clear to Auscultation
Cardiac: Regular Rhythm and S1/S2; Negative Murmur
GI: Soft, Nontender and Nondistended
Neuro: Awake, Alert, Oriented and No Motor Deficits
Psych: Calm
[2025-04-14] MEDS: MELATONIN PO (20:32)
[2025-04-14] MEDS: ATIVAN 1 MG PO (20:59)
[2025-04-15] VITALS (9 sets, daily range): BP systolic 89–135; BP diastolic 44–75; PULSE 72–76; BMI 20.1
--- NOTE | 2025-04-15 01:20 | PTCARENOTE ---
Tele remains Apaced w/ occasional PVCs, HR 60's. Patient c/o being unable to sleep but then refuses to take scheduled Melatonin. Patient reports she uses medical marijuana when shes at home. Ambulates self in room w/ RW, denies any dizziness.
Denies any nausea but c/o poor appetite & low energy. Patient c/o back discomfort, PRN Tylenol administered at 22:03. Pt w/ good relief. Call martel in reach.
[2025-04-15] MEDS: SYNTHROID 100 MCG PO (05:55)
--- NOTE | 2025-04-15 08:37 | W.PN.CD ---
Today's Communication / Plan
-
continue to monitor renal function
consider reinitiation of spironolactone when creatinine back to baseline and BP improved.
Patient has been intolerant to statins. Repatha prescribed as outpatient but she did not start for a variety of reasons. now willing. Will wait until she has additional recovery prior to starting Repatha. This will be reassessed at her follow up
visit. Apr 29 at 4:30 at main office [address] [place] [address]
Impression / Plan
-
I/P: 70F with CAD status post prior CABG, VT, recovered ischemic cardiomyopathy, carotid artery disease status post left internal carotid stenting, PAD with prior PCI followed by Dr. De Souza, hypothyroidism and atrial flutter on Eliquis who presented
with
Primary dietetics professor: Dr. Riso
Acute hypoxic respiratory failure - in the setting of acute heart failure,
- Improved. Plan regarding heart failure as below
.
HFimpEF, acute on chronic
- LVEF this admit 45-50%
- Improved
-reduce Toprol XL to 25mg bid due to low BP
- Lasix/Aldactone/Farxiga were added earlier this admission: now with TORRI, will hold these meds, encourage PO intake, and trend Cr
- Appears creatinine is improving. Will wait until creatinine is close to baseline prior to considering further initiation of meds. GI issues have improved and she has adequate oral intake . Farxiga is listed on is on her outpatient meds but
patient denies taking this medication. Combination of costs and reluctance to take new. meds.
- component of pumonary edema may be related to allergic reaction. resp status improved. Creatinine elevated and patient has been increasing oral intake.
No plan for addtion of diuretic. i will reassess her inthe office about 2 weeks after discharge
Nonischemic myocardial injury from heart failure, peak trop 0.130
GI. Patient listed as having had nausea/vomiting/diarrhea: Currently with some residual abdominal discomfort. Worse after eating. Mild right-sided discomfort with palpation on exam. Abdominal CT without report of acute abnormality. 'Question of
food contamination based on hospitalist notes. Patient continues to have abdominal discomfort and may need to consider additional GI assessment. Note patient does have significant history of vascular disease and if she continues to have
postprandial pain bowel ischemia needs to be a consideration.
Atrial flutter, type unknown - prior ablation
- Stable in sinus rhythm
- Oral Anticoagulation: Apixaban 5 mg twice daily
- [id number]: Score at least 5 (Heart failure, HTN, Vascular disease, age 65-74, female gender)
VT status post ICD; also brief SVT on tele
- Continue beta vicki
CAD
- Prior CABG and PCI's, on clopidogrel and apixaban, due to PAD.
- Stable without chest pain
- Continue current medical therapy
PAD
-Bilateral carotid artery disease
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
-Severe ostial right renal artery stenosis
-Right external iliac and distal left external iliac stents
-On Eliquis, Plavix and Crestor
-Followed by Dr. De Souza
Mitral regurgitation, mild to moderate
Tricuspid regurgitation, mild to moderate
Hypercholesterolemia, does not tolerate higher doses of statin, continue rosuvastatin 5 mg
Former smoker, continued cessation recommended
Echo 04/09/2025:
1. Normal LV size with basal anterior septal, basal and mid inferior septal, and mid inferolateral wall hypokinesis. LVEF visually estimated 45 to 50%.
2. Normal right regular size and systolic function.
3. Mild mitral regurgitation.
4. Compared to echocardiogram report dated 04/03/2024 the LVEF is reported a bit lower. Previously the LVEF was estimated 55-60%. In October 2022 the LVEF was reported to be 45 to 50%. MR has improved from mild–moderate to mild.
Physical Exam
Vital Signs/Labs
Vital Signs
Temp Pulse Resp BP Pulse Ox
97.8 F 63 15 134/50 99
04/15/25 08:20 04/15/25 08:20 04/15/25 08:20 04/15/25 03:38 04/15/25 08:20
04/14/25 04/15/25 04/16/25
05:59 06:59 06:59
Actual Weight 54.6 kg 54.8 kg
04/12/25 04:21
PT 15.8 Sec (11.4-14.6) H 04/08/25 21:21
INR 1.23 04/08/25 21:21
APTT 29.0 Sec (23.4-35.0) 04/08/25 21:21
Magnesium 2.5 mg/dl (1.6-2.3) H 04/10/25 01:18
04/08/25 04/08/25
13:23 16:56
Wmi-L-Ubmhzmpenxh Pept > 65048 Cancelled
Physical Exam
Constitutional: No acute distress
Cardiovascular: Rhythm & rate is regular
Respiratory: Lungs clear to auscul. and Rhonchi Absent
GI: Soft and Non tender
Neuro/Psych: Alert and Oriented
Other: Skin
Data Reviewed
-
Date of Service: April 15, 2025
Medical Decision Making: Reviewed Test Results
X-Ray/CT/US/MRI/NUC/PET: Report Reviewed by me
Medical Tests (PFT, Pathology etc): Image Personally Visualized and interpreted and Report Reviewed by me
Labs: Labs Reviewed by me
[2025-04-15] MEDS: CRESTOR 5 MG PO (08:42)
[2025-04-15] MEDS: PROTONIX IV 40 MG IV (08:42)
[2025-04-15] MEDS: NSS (PRESERVATIVE FREE) 10 ML IV (08:42)
[2025-04-15] MEDS: ELIQUIS 5 MG PO (08:43)
[2025-04-15] MEDS: TOPROL XL 25 MG PO (08:43)
[2025-04-15] MEDS: PLAVIX 75 MG PO (08:43)
--- NOTE | 2025-04-15 08:59 | PTCARENOTE ---
Assumed care at 0700. Patient AOx3, anxious and tearful at times. A-paced HR 61, ortho vitals obtained, denies lightheadedness or pain. Abdomen soft non-tender, poor appetite, encouraged to try increase PO intake today and avoid foods cause GI
distress. Walking to the bathroom with rolling walker, gait is steady, call martel in reach
[2025-04-15 09:39] LABS: Albumin 4.3 g/dl (3.5-5.0); Blood Urea Nitrogen 24 mg/dl (7-17); Calcium 9.6 mg/dl (8.4-10.2); Carbon Dioxide 30 mmol/L (22-30); Chloride 99 mmol/L (98-107); Estimated Creatinine Clearance 37 ml/min; Glucose 117 mg/dl (70-99); Potassium 4.5 mmol/L (3.5-5.1); Sodium 137 mmol/L (135-145); eGFR 48.39
--- NOTE | 2025-04-15 12:49 | W.PN.HOSP.TC ---
Today's Communication/Plan
-
dc to home/VN Today
Assessment / Plan
Assessment / Plan
Assessment:
Acute hypoxic respiratory failure - Improved
- required BiPAP and midflow support in ER
- Currently patient on room air after diuretic course
Acute on chronic diastolic heart failure
- Chest x-ray reviewed and showing changes of mild to moderate pulmonary edema
- Continue follow-up weight and creatinine
- Echocardiogram showing some ventricular hypokinesis. Ejection fraction 45 to 50%
- s/p diuretic course; no Lasix at discharge
- d/w Dr. Rios on 04/15; resume Aldactone in 1 week; repeat BMP in 1 week
- OP CBC Cardiology f/u
Chest pain - improving
Nonischemic myocarial injury in seting of CHF
- Located in lower sternum epigastric region. Crushing/dull and constant in nature. Not associated with any diaphoresis. Nauseous although nausea was present in ER symptom and did not start with chest pain per se.
- Troponin trending down, 0.13 > 0.10 > 0.11. EKG showing paced rhythm
- Suspecting patient may have component of gastritis/esophagitis mimicking chest pain. Maintained on Protonix 40mg BID at discharge
Aspiration pneumonitis -ruled out
- Repeat chest x-ray yesterday showed almost complete resolution of infiltrate suggestive of initial finding being pulmonary edema rather than pneumonia
- Patient has been taken off of antibiotic, monitor. Will consider reinitiation if clinically warranted
- Patient increased white blood cell count likely from dexamethasone 10 mg given in the ER
History of ventricular tachycardia
History of ablation
- Patient have ICD in place and currently in paced rhythm
- Patient denies of having any history of tachyarrhythmia post ablation
Nausea and vomiting - Improving
- CT abdomen pelvis did not show any acute abnormality
- Patient have irregular GI and usually have egg [place] without eggs, question of possible food contamination
- Cancel further stool studies and monitor clinically
- Lipase wnl
- Patient complaining minimal nausea. Cardio recommended GI evaluation as question of mesenteric ischemia, patient symptoms and not typical postprandial nature and very acute onset. no other signs to suggest acute ischemic gut.
- Patient may have a component of gastritis/esophagitis from n/v. maintained on IV Protonix 40mg/bid
- GI input noted and help appreciated.
Coronary disease
History of CABG in 2004
- Maintained on aspirin/statin
Essential hypertension
- d/w Dr. Rios on 04/15; resume Aldactone in 1 week; repeat BMP in 1 week
- continue reduced metoprolol dose
TORRI
- repeat BMP in 1 week
Hyponatremia
- Mild, monitor
PAD-follows with Dr. De Souza
History of carotid stent 2012
Chronic Anemia
Hypothyroidism-continue Synthroid
Hyperlipidemia-continue statin
Ex-smoker
DVT Px: Eliquis
Full code
More than 30 minutes spent in discharge including
Final examination of the patient
Summarizing hospital stay
Instructions for continuing care to all relevant caregivers
Preparation of discharge records, prescriptions, and referral forms
Total time spent (in minutes): 41
Anticipated Discharge: Today
Subjective/Interval History
-
Date of Service: April 15, 2025
resting comfortably
Cr 1.2 today
Objective Data
-
Labs:
Laboratory Results
04/15/25
08:54
Sodium 137
Potassium 4.5
Chloride 99
Carbon Dioxide 30
BUN 24 H
Creatinine 1.2 H
Glucose 117 H
Calcium 9.6
Vital Signs:
Vital Signs
Temp Pulse Resp BP Pulse Ox
97.8 F 64 16 123/65 99
04/15/25 11:18 04/15/25 11:18 04/15/25 11:18 04/15/25 08:38 04/15/25 11:18
I&O
04/14/25 04/15/25 04/16/25
05:59 06:59 06:59
Intake Total 960 / 960 960 / 960
Output Total 1000 / 1000 1500 / 1500 200 / 200
Balance -40 / -40 -540 / -540 -200 / -200
Physical Exam
-
General: No Apparent Distress
HEENT: Normocephalic and Atraumatic
Respiratory: Negative Wheezes
Cardiac: Regular Rhythm and S1/S2
GI: Soft
Neuro: AO x 3
Psych: Calm
Data Reviewed
-
Total Time Spent with Patient (in minutes): 41
Labs: Labs Reviewed by me
--- NOTE | 2025-04-15 13:03 | W.DCSUMMARY ---
Discharge Summary
Discharge Data
Date of Admission: 04/08/25
Date of Discharge: 04/15/25
-
Pending Results: No
Hospital Course
70 y/o F with past medical history significant for hypertension, hypercholesterolemia, atrial flutter, paroxysmal ventricular tachycardia, hypothyroidism, coronary artery disease, peripheral vascular disease and peripheral arterial disease presented
ER on 04/08 with SOB and ruled in for acute CHF. She received a course of diuresis and was discharged home on 04/15 (with home VN) on Aldactone but Lasix was stopped until repeat office visit. Patient was also placed on SGLT2 inhibitor. Due to
diuresis, she developed an TORRI which was already improving by the time of discharge and she will have repeat BMP in 1 week.
She also presented with nausea/vomiting related to inadvertent egg ingestion (hx of allergy). Those symptoms resolved with conservative treament.
She was discharged home 04/15.
Discharge Plan
-
Patient Disposition: Home with Home Care
Discharge Diagnosis/Procedures: Hypoxia, acute CHF, chest pain, TORRI from diuretics
Condition: Fair
Diet: Low Cholesterol
Activity: As tolerated
Blood Work: BMP in 1 week - script given
Other Services: VN
Instructions: *CBC Heart Failure Instructions
Referrals:
[facility] [Outside]
Marielena Espinosa MD [Active, Pulmonary Medicine] - in one to two months
Referral Note: High risk for lung cancer
Recommend lung cancer screening and PFT given smoking history
Steve Rios MD [Active, Cardiology] - 04/29/25 4:40 pm
Frank Delgado MD [Family Provider, Family Practice]
Additional Discharge Medication Instructions: metoprolol reduced to 25mg BID from 100mg. Norvasc stopped. Resume spironolactone in 1 week
Prescriptions:
New
dapagliflozin propanediol 10 mg Tablet
10 mg PO DAILY Qty: 30 0RF
spironolactone 25 mg Tablet
25 mg PO DAILY Qty: 30 0RF
metoprolol succinate 25 mg Tablet Extended Release 24 Hr
25 mg PO BID Qty: 60 0RF
pantoprazole [Protonix] 40 mg tablet,delayed release (DR/EC)
40 mg PO DAILY Qty: 30 0RF
(DME) BMP
See Rx Instructions .Route .MEDSUPPLY Qty: 1 0RF
Rx Instructions:
in 1 week. Diagnosis is CHF
Continued
levothyroxine [Synthroid] 100 mcg Tablet
100 mcg PO DAILY
Rx Instructions:
BRAND ONLY
Eliquis 5 mg Tablet
5 mg PO BID Qty: 60 5RF
rosuvastatin 5 mg tablet
5 mg PO DAILY
vitamin B complex Tablet
1 tab PO DAILY Qty: 0
acetaminophen [Tylenol] 325 mg Tablet
650 mg PO DAILYPRN PRN (Reason: mild pain)
therapeutic multivitamin Tablet
1 tab PO DAILY
clopidogrel 75 mg tablet
75 mg PO DAILY
Discontinued
amlodipine [Norvasc] 2.5 mg Tablet
2.5 mg PO DAILY
metoprolol tartrate 100 mg tablet
100 mg PO BID
Discharge Orders:
Discharge Patient (As Directed); Ordered 04/15/25
Ordered By: Vanessa Hills
Care Plan Goals
Care Plan Goals:
Problem: Readiness for enhanced knowledge related to diagnosis and treatment plan
Goal: Understand your diagnosis and treatment plan needs, including medications if applicable.
Instructions: Know your diagnosis, underlying causes and treatment plan options, including medications if applicable. Consult with your health care team to learn about your diagnosis and treatment plan, including medications if applicable.
Discharge Date and Time
Print Language: AMHARIC
--- NOTE | 2025-04-15 13:35 | CM ---
Reviewed chart. Met with Mrs. Jacobs to review discharge plans. She states she is feeling okay and maybe able to go home soon. She expressed concern about the cost of her medications. We reviewed [facility]. She thinks she is on [facility].
Telephone call to [facility] to confirm she is enrolled. She is active with [facility]. He co-pay for Eliquis and Fraxiga would be $15.00 a month for each. Prior to admission she resides with her significant other in a one story home with two steps to
enter. Prior to admission she was independent with ambulation and adls. She does not have any DME in the home. She has never needed VNA Services She has a prescription plan and uses [facility]. Will need to see her current functional level to
see if she will have any skilled care needs. Medical work-up in progress. The discharge plan is to return home with her significant other and [facility] when medically stable.
--- NOTE | 2025-04-15 13:51 | PTCARENOTE ---
Patient discharged to home. Teaching provided and patient verbalized understanding. IV and telemetry removed. Patients friend will drive her home today
--- NOTE | 2025-04-15 14:49 | PTCARENOTE ---
Patient taken to main lobby in wheelchair.
--- NOTE | 2025-04-16 09:56 | W.HF.CON ---
Heart Failure
- LV Function
Left ventricular function study result: LV Ejection fraction 41-49%
Ejection Fraction Percentage: 45-50
- ARNI
Patient already on ARNI: No
Heart Failure ARNI Not Indicated: LV Ejection Fraction >/= 40%
- ACEI/ARB
Patient already on ACEI/ARB: No
Heart Failure ACEI/ARB Not Indicated: LV Ejection Fraction > 40%
- Beta Tyrell
Patient already on Evidence Based Beta Tyrell: Yes
- Mineralocorticord Receptor Antagonist
Patient already on MRA: Yes
- SGLT-2 Inhibitor
Patient already on SGLT-2 Inhibitor: Yes
- Afib Anticoagulation
Patient already on Anticoagulation for Afib: Yes
- NYHA CHF Classification
NYHA CHF Classification Level: Class III - Symptoms w/ min exertion, interferes w/ nml daily activity
- ACC/AHA Stage
ACC/AHA Stage: Stage C: Symptomatic Heart Failure
== END 2025-04-15 15:42 | disposition home health service (06) | DRG 291 ==
LOC: IVU 17:58
PROVIDERS: Hospitalist; Internal Medicine Cardiovascular Disease; Nurse Practitioner Family; Nurse Practitioner Gerontology; ADMITTING PHYSICIAN Internal Medicine; ATTENDING PHYSICIAN Internal Medicine; CONSULT PHYSICIAN Internal Medicine Critical Care Medicine; CONSULT PHYSICIAN Internal Medicine Gastroenterology; EMERGENCY PHYSICIAN Emergency Medicine; FAMILY PHYSICIAN Family Medicine; OTHER PHYSICIAN Internal Medicine Cardiovascular Disease
DX: I11.0 Hypertensive heart disease with heart failure (principal); I50.33 Acute on chronic diastolic (congestive) heart failure; J96.01 Acute respiratory failure with hypoxia; J69.0 Pneumonitis due to inhalation of food and vomit; I47.29 Other ventricular tachycardia; I48.4 Atypical atrial flutter; N17.9 Acute kidney failure, unspecified; E87.1 Hypo-osmolality and hyponatremia; Z87.891 Personal history of nicotine dependence; I5A Non-ischemic myocardial injury (non-traumatic); Z11.52 Encounter for screening for COVID-19; I73.9 Peripheral vascular disease, unspecified; I25.10 Atherosclerotic heart disease of native coronary artery without angina pectoris; Z82.49 Family history of ischemic heart disease and other diseases of the circulatory system; Z79.01 Long term (current) use of anticoagulants; Z79.02 Long term (current) use of antithrombotics/antiplatelets; Z79.899 Other long term (current) drug therapy
CPT/HCPCS: 71045; 74177; 80048; 80053; 80069; 81003; 81015; 82805; 82962; 83605; 83690; 83735; 83880; 84100; 84484; 85025; 85027; 85610; 85730; 87502; 87641; 87811; 93005; 93306; 94640; 94660; 96361; 96374; 96375; 96376; 97162; 97166; 97535; 99285; Q9967